=== PATIENT | male | born 1945 | race Caucasian/White ===

== ENCOUNTER → 2017-08-17 12:21 | Outpatient (CLI) | payer OTHER, SELFPAY ==
--- NOTE | 2017-08-17 | DI.US.S_ITS ---
PROCEDURE: US CAROTID DOPPLER BI INDICATIONS: VISION LOSS SUDDEN LEFT TECHNIQUE: Color and pulse Doppler interrogation was performed of both carotid systems, with image documentation and velocity measurements. COMPARISON: [facility], US, CAROTID ARTERY DOPPLER BILAT, 11/05/2015, 10:50. FINDINGS: Stenosis calculations are based on SRU (Society of Radi[employer] in Ultras[employer]) criteria. Right side: Brachial blood pressure: 110/67 mm Hg. Common carotid artery peak systolic velocity: 76 cm/sec. Internal carotid artery peak systolic velocity: 76 cm/sec. Internal carotid artery end diastolic velocity: 11 cm/sec. External carotid artery peak systolic velocity: 63 cm/sec. ICA/CCA peak systolic ratio: 1.0 . Crews scale imaging description: Calcified plaques at the bifurcation Percent internal carotid artery stenosis: Less than 50% and unchanged. Vertebral artery: Flow direction is antegrade. Left side: Brachial blood pressure: 89/60 mm Hg. Common carotid artery peak systolic velocity: 120 cm/sec. Internal carotid artery peak systolic velocity: 64 cm/sec. Internal carotid artery end diastolic velocity: 19 cm/sec. External carotid artery peak systolic velocity: 97 cm/sec. ICA/CCA peak systolic ratio: 0.54 . Crews scale imaging description: Density calcified plaques in carotid artery and carotid bifurcation Percent internal carotid artery stenosis: Less than 50% and unchanged. Vertebral artery: Flow direction is antegrade. IMPRESSION: Less than 50% internal carotid artery stenosis bilaterally, unchanged from the last exam. Dictated by: Yamila Sanchez M.D. on 08/17/2017 at 16:31 Approved by: Yamila Sanchez M.D. on 08/17/2017 at 16:34
--- NOTE | 2017-08-17 | DI.US.S_ITS ---
PROCEDURE: US ABD AORTA ANEURYSM SCREEN INDICATIONS: VISION LOSS SUDDEN LEFT TECHNIQUE: Real time scanning was performed of the aorta and iliac arteries, with image documentation. COMPARISON: None. FINDINGS: Aorta: Proximal aortic diameter measures 2.2 cm. Mid-aorta measures 2.1 cm. Distal aortic diameter is 1.9 cm. Iliac arteries: Right common iliac artery measures 1.2 cm. Left common iliac artery measures 1.2 cm. IMPRESSION: No aneurysm identified. Dictated by: Dez Kelsey M.D. on 08/17/2017 at 13:37 Approved by: Dez Kelsey M.D. on 08/17/2017 at 13:37
== END ==
PROVIDERS: PCP Family Medicine; Referring Provider Internal Medicine Cardiovascular Disease; Visit Provider Psychiatry & Neurology Neurology
DX: H54.7 Unspecified visual loss (principal)
CPT/HCPCS: 76706; 93880

== ENCOUNTER → 2017-09-16 14:48 | Outpatient (CLI) | payer OTHER, SELFPAY ==
--- NOTE | 2017-09-16 | DI.MRI.S_ITS ---
PROCEDURE: MR HEAD/BRAIN WO CON INDICATIONS: Unspecified visual disturbance TECHNIQUE: Non-contrast axial T1 spin echo, axial T2 fast spin echo, sagittal and axial FLAIR, coronal T2 fast spin echo, axial gradient echo, axial diffusion and ADC through the brain. COMPARISON: [facility], US, US CAROTID DOPPLER BI, 08/17/2017, 12:34. [facility], CT, HEAD WITHOUT CONTRAST, 05/10/2017, 11:30. FINDINGS: Image quality: Excellent. CSF spaces: Ventricles appear symmetric in size and shape. Basal cisterns are patent. No extra-axial fluid collections. Brain: No intracranial bleeds or mass effects. There is cerebral volume loss for age. There are periventricular and deep white matter chronic small vessel ischemic changes. Brainstem appears normal. Diffusion-weighted images show no acute ischemic insults. No chronic ischemic insults. Normal intravascular flow voids are present. Skull and face: Calvarial bone marrow is normal in signal. Orbits are normal. Sinuses: Sinuses and mastoids are clear. IMPRESSION: Unremarkable imaging examination for age. Note is made of age-appropriate brain parenchymal volume loss and chronic small vessel ischemic changes. Dictated by: Micah Stubbs M.D. on 09/16/2017 at 14:52 Approved by: Micah Stubbs M.D. on 09/16/2017 at 14:54
== END ==
PROVIDERS: PCP Family Medicine; Visit Provider Psychiatry & Neurology Neurology
DX: H53.9 Unspecified visual disturbance (principal)
CPT/HCPCS: 70551

== ENCOUNTER → 2018-10-30 10:24 | Outpatient (CLI) | payer OTHER, SELFPAY ==
--- NOTE | 2018-10-30 | DI.MRI.S_ITS ---
PROCEDURE: MR SHOULDER LT WO CON INDICATIONS: BI SHOULDER PAIN TECHNIQUE: Noncontrast oblique coronal T2 fast spin echo with fat saturation, oblique sagittal T1 spin echo and T2 fast spin echo with fat saturation, axial T1 spin echo and T2 fast spin echo with fat saturation through the shoulder. COMPARISON: [facility], CR, XR SHOULDER 2+ VIEWS RIGHT, 09/23/2018, 13:45. [facility], MR, MR SHOULDER RT WO CON, 10/30/2018, 10:33. FINDINGS: Image quality: Susceptibility artifacts in humeral head are seen with multiple surgical screws noted consistent with prior rotator cuff tendon repair. Rotator cuff: There is full-thickness rupture of the distal supraspinatus and infraspinatus at their insertion on normal head with ovoid 7 cm medial retraction of torn tendon fibers to the level of glenohumeral joint. Tendinosis and low to moderate grade partial-thickness tear involving the superior to mid fibers of the distal subscapularis is seen. Sagittal images demonstrate moderate to severe supraspinatus and infraspinatus muscle atrophy. Mild subscapularis muscle atrophy is also seen. Bones and bursae: Post surgical changes are noted in the acromioclavicular joint and humeral head. No gross marrow edema. No acute fracture or dislocation. Superior migration of humeral head in relation to glenoid is seen. Capsule and soft tissues: In the absence of intra-articular contrast, the labrum and glenohumeral ligaments appear intact. The long head of the biceps tendon demonstrates tendinosis and low to moderate grade intrasubstance partial-thickness tear. The rotator interval appears normal, without fibrosis. The coracohumeral ligament is normal in thickness. IMPRESSION: 1. Post surgical changes from previous rotator cuff tendon repair. No gross acute fracture or dislocation. 2. Full-thickness rupture of distal supraspinatus and infraspinatus at the insertion of humeral head with medial retraction of torn tendon fibers to the level of glenoid. Tendinosis and low to moderate grade partial-thickness tear involving distal subscapularis. Moderate to severe supraspinatus and infraspinatus muscle atrophy. Mild to moderate subscapularis muscle atrophy. 3. Tendinosis and moderate grade intrasubstance partial-thickness tear involving proximal intra-articular portion of long head biceps tendon. 4. No evidence of focal labral tear. Dictated by: Raheem Tobin M.D. on 11/01/2018 at 10:14 Approved by: Raheem Tobin M.D. on 11/01/2018 at 10:24
--- NOTE | 2018-10-30 | DI.MRI.S_ITS ---
PROCEDURE: MR SHOULDER RT WO CON INDICATIONS: BI SHOULDER PAIN TECHNIQUE: Noncontrast oblique coronal T2 fast spin echo with fat saturation, oblique sagittal T1 spin echo and T2 fast spin echo with fat saturation, axial T1 spin echo and T2 fast spin echo with fat saturation through the shoulder. COMPARISON: [facility], MR, SHOULDER WITHOUT CONTRAST, 09/28/2012, 13:19. FINDINGS: Image quality: Excellent. Rotator cuff: There is full-thickness rupture of the supraspinatus and infraspinatus at their insertion on the humeral head with 5 cm medial retraction of torn tendon fibers to the level of glenohumeral joint. Tendinosis and moderate grade partial-thickness involving distal subscapularis tendon is seen. Sagittal images demonstrate severe supraspinatus and infraspinatus muscle atrophy. Bones and bursae: There is superior migration of humeral head in relation to the glenoid. Moderate acromioclavicular joint and glenohumeral joint osteoarthritis is seen. No fracture or dislocation. Moderate amount of joint fluid in subacromial subdeltoid bursal fluid is seen. The Capsule and soft tissues: In the absence of intra-articular contrast, the labrum and glenohumeral ligaments appear intact. There is tendinosis and moderate to high-grade partial-thickness tear involving proximal intra-articular portion of long head biceps tendon. The rotator interval appears normal, without fibrosis. The coracohumeral ligament is normal in thickness. IMPRESSION: 1. Full-thickness rupture of distal supraspinatus and infraspinatus at the insertion of humeral head with a 5 cm medial retraction of torn tendon fibers to the level of glenohumeral joint. Tendinosis and moderate grade partial-thickness tear involving superior to mid fibers of distal subscapularis. Severe supraspinatus and infraspinatus muscle atrophy and moderate subscapularis muscle atrophy. 2. Moderate acromioclavicular joint and glenohumeral joint osteoarthritis. No fracture or dislocation. 3. No gross focal right shoulder labral tear. 4. Tendinosis and moderate to high-grade partial-thickness tear involving proximal intra-articular portion of long head of biceps tendon. Dictated by: Raheem Tobin M.D. on 11/01/2018 at 9:52 Approved by: Raheem Tobin M.D. on 11/01/2018 at 10:14
== END ==
PROVIDERS: PCP Family Medicine; Visit Provider Orthopaedic Surgery Foot and Ankle Surgery
DX: M25.511 Pain in right shoulder (principal); M25.512 Pain in left shoulder; M75.122 Complete rotator cuff tear or rupture of left shoulder, not specified as traumatic; M75.121 Complete rotator cuff tear or rupture of right shoulder, not specified as traumatic; M19.011 Primary osteoarthritis, right shoulder
CPT/HCPCS: 73221

== ENCOUNTER → 2019-04-20 10:51 | Outpatient (CLI) | payer OTHER, SELFPAY ==
--- NOTE | 2019-04-20 | DI.CT.S_ITS ---
PROCEDURE: CT CHEST WO CON INDICATIONS: Emphysema, unspecified TECHNIQUE: Noncontrast 5 mm thick sections acquired from the pulmonary apices to the posterior costophrenic angles. 1 mm lung window, 5 mm thick coronal and sagittal and 7 mm axial MIP reformats were then acquired. For radiation dose reduction, the following was used: automated exposure control, adjustment of mA and/or kV according to patient size. COMPARISON: [facility], CT, THORAX WITHOUT CONTRAST, 04/08/2016, 10:45. [facility], CT, CT ANGIO AORTA RUNOFF, 06/01/2018, 16:02. FINDINGS: Image quality: Excellent. Lungs and pleura: No acute consolidation. No pleural effusion or pneumothorax. There is redemonstration of bilateral upper and lower lobe subpleural reticular and ill-defined opacities, which have progressed diffusely since 04/08/16. There is central airway thickening. No definite bronchiectasis seen however potential early honeycombing appearance present in the lingula and right middle lobe, please see montage image. Mediastinum: Heart size is normal. Coronary artery calcifications are present. Scattered vascular calcifications seen in the aorta. No pericardial effusion. No mediastinal adenopathy by size criteria. Thoracic aorta and central pulmonary arteries are normal in size. Esophagus is normal in caliber. No hiatal hernia. Bones and chest wall: Bilateral gynecomastia incidentally noted. No suspicious bony lesions. No vertebral body compression fractures. Diffuse spondylosis and facet arthropathy. Multiple chronic appearing bilateral rib fractures with callus formation. No axillary or supraclavicular adenopathy by size criteria. Thyroid gland negative. Abdomen: Visualized upper abdominal solid organs and bowel loops appear normal in the absence of contrast. IMPRESSION: Interval progression in bilateral upper and lower lobe interstitial disease, with progressive early fibrotic appearance in the right middle lobe and lingula. Findings are worrisome for early/developing usual interstitial pneumonia, although other etiology such as chronic hypersensitivity pneumonitis or fibrotic NSIP in the differential, probably less likely Incidentally noted bilateral gynecomastia Coronary artery disease. Dictated by: Wisam Girard M.D. on 04/20/2019 at 11:17 Approved by: Wisam Girard M.D. on 04/20/2019 at 11:25
== END ==
PROVIDERS: PCP Family Medicine; Referring Provider Nurse Practitioner Family; Visit Provider Nurse Practitioner Family
DX: J98.4 Other disorders of lung (principal); J43.9 Emphysema, unspecified; I25.10 Atherosclerotic heart disease of native coronary artery without angina pectoris; N62 Hypertrophy of breast
CPT/HCPCS: 71250

== ENCOUNTER 2019-07-02 10:19 | Emergency (ER) | payer OTHER, SELFPAY ==
[2019-07-02 10:28] VITALS: BP 115/64; PULSE 96; RESP 20; TEMP 36.2; O2SAT 98; BMI 31.5
--- NOTE | 2019-07-02 10:50 | PC.NURSE ---
Pt has a pressure injury on bottom of right foot. Pt was not aware that it was there. It has an odor.
--- NOTE | 2019-07-02 11:10 | ED.LOWEXIN ---
HPI - Extremity Injury (Lower) General Chief Complaint: Extremity Injury, Lower Stated Complaint: poss broken lt hip Time Seen by Provider: 07/02/19 11:10 Source: patient and family Mode of arrival: Wheelchair Related Data Home Medications Medication Instructions Recorded Confirmed losartan 25 mg PO QDAY #0 08/28/11 metoprolol tartrate 25 mg PO BID #0 08/28/11 metformin [Fortamet] 500 mg PO BID #0 05/14/12 venlafaxine [Effexor XR] 150 mg PO QDAY #0 02/04/16 Allergies Allergy/AdvReac Type Severity Reaction Status Date / Time atorvastatin Allergy Intermediate Verified 07/02/19 10:27 diclofenac Allergy Unknown Verified 07/02/19 10:27 Sulfa (Sulfonamide Allergy Unknown Verified 07/02/19 10:27 Antibiotics) [SULFA (SULFONAMIDE ANTIBIOTICS)] bupropion AdvReac Unknown LOWERS Verified 07/02/19 10:27 SEIZURE THRESHOLD ALL STATINS Allergy Unknown Uncoded 07/02/19 10:27 Patient History Social History Smoking Status: Current every day smoker Smoking Status: Current every day smoker Alcohol type: hard liquor Substance Use Type: does not use Exam Initial Vital Signs Initial Vital Signs: Vital Signs Temperature 97.2 F L 07/02/19 10:28 Pulse Rate 96 H 07/02/19 10:28 Respiratory Rate 20 07/02/19 10:28 Blood Pressure 115/64 07/02/19 10:28 Pulse Oximetry 98 07/02/19 10:28 Course Orders Ordered: ED Orders 07/02/19 11:09 UA Complete [Urinalysis and Microscopic] Stat Vital Signs Vital signs: Vital Signs - 8 hr 07/02/19 10:28 Temperature 97.2 F L Pulse Rate 96 H Respiratory Rate 20 Blood Pressure 115/64 Pulse Oximetry 98 Discharge Plan Departure Prescriptions: No Action losartan 25 MG tablet 25 mg PO QDAY Qty: 0 RF: 0 metoprolol tartrate 25 MG tablet 25 mg PO BID Qty: 0 RF: 0 metformin [Fortamet] 500 MG tablet extended release 24hr 500 mg PO BID Qty: 0 RF: 0 venlafaxine [Effexor XR] 150 MG capsule,extended release 24hr 150 mg PO QDAY Qty: 0 RF: 0
[2019-07-02 11:13] LABS: Bacteria Urine None Seen
[2019-07-02 11:19] LABS: Appearance Urine UA CLEAR; Bilirubin Urine UA NEGATIVE (NEGATIVE); Color Urine UA YELLOW; Glucose Urine UA 1+ g/dL (Negative); Ketones Urine UA NEGATIVE (NEGATIVE); Leukocyte Esterase Urine UA NEGATIVE (NEGATIVE); Nitrite Urine UA NEGATIVE (Negative); Occult Blood Urine UA TRACE-LYSED (Negative); Protein Urine UA NEGATIVE (Negative); Urobilinogen Urine UA 0.2 E.U./dL (0.2); pH Urine UA 6.5 (4.5-8.0)
[2019-07-02 11:26] LABS: Culture Indicated Urine Cult Not Indicated; RBC Urine 0-1/HPF (0-5/HPF); Squamous Epithelial Cell Urine 0-1 /HPF (0-5/HPF); WBC Urine 0-1/HPF (0-5/HPF)
--- NOTE | 2019-07-02 11:46 | DI.CT.S_ITS ---
PROCEDURE: CT CERVICAL SPINE WO CON INDICATIONS: s/p fall on L face 2 days ago TECHNIQUE: Noncontrast 3 mm thick sections acquired from the skull base to the T4 level. Sagittal and coronal reformats were then constructed. For radiation dose reduction, the following was used: automated exposure control, adjustment of mA and/or kV according to patient size. COMPARISON: [facility], CT, CT HEAD/BRAIN WO CON, 07/02/2019, 11:54. FINDINGS: Image quality: Diagnostic. Bones: The craniocervical and atlantoaxial joints are well-maintained. The odontoid is intact. The vertebral body heights and prevertebral soft tissues are within normal limits throughout the cervical spine without evidence to suggest acute compression fracture. No other fractures are evident within the cervical spine. The bone mineralization is within normal limits. Moderate to severe multilevel degenerative changes of the cervical spine are primarily evident involving the facet joints. Soft tissues: No prevertebral soft tissue swelling. The imaged lung apices are clear. Imaged portions of the mediastinum are unremarkable. Mild scarring/fibrotic changes are evident within the imaged portions of the lung apices. Aortic and carotid artery atherosclerosis is present, but not adequately characterized. Otherwise, the remainder of the imaged soft tissues of the neck are within normal limits. IMPRESSION: 1. No acute fractures of the cervical spine. 2. Moderate to severe degenerative changes of the cervical spine. Dictated by: Gavin Sanderson M.D. on 07/02/2019 at 11:24 Approved by: Gavin Sanderson M.D. on 07/02/2019 at 11:26
--- NOTE | 2019-07-02 11:46 | DI.CT.S_ITS ---
PROCEDURE: CT HEAD/BRAIN WO CON INDICATIONS: s/p tripped and fall, takes 1GM ASA daily, L orbit pain, bru TECHNIQUE: Noncontrast 4.5 mm thick angled axial sections acquired from the foramen magnum to the vertex, with coronal and sagittal reformats. For radiation dose reduction, the following was used: automated exposure control, adjustment of mA and/or kV according to patient size. COMPARISON: [facility], CT, HEAD WITHOUT CONTRAST, 05/10/2017, 11:30. FINDINGS: Image quality: Diagnostic. CSF spaces: Basal cisterns are patent. No extra-axial fluid collections. Ventricles are prominent with corresponding parenchymal volume loss. Brain: No midline shift. No intracranial masses or hemorrhage. Crews-white matter interface is normal. Areas of low-attenuation are seen within the periventricular white matter of the supratentorial brain. Skull and face: Calvarium and visualized facial bones are intact, without suspicious lesions. Sinuses: Mucosal thickening is noted involving the left maxillary sinus and ethmoid air cells. Otherwise, the imaged paranasal sinuses and mastoid air cells are clear. IMPRESSION: 1. No acute intracranial. 2. Mild chronic small vessel ischemic changes and parenchymal volume loss. 3. Mild paranasal sinus disease. Dictated by: Gavin Sanderson M.D. on 07/02/2019 at 11:15 Approved by: Gavin Sanderson M.D. on 07/02/2019 at 11:24
--- NOTE | 2019-07-02 11:46 | DI.RAD.S_ITS ---
PROCEDURE: XR HIP W PEL IF DONE LT 2V INDICATIONS: left hip pain, difficulty bearing weight, s/p fall TECHNIQUE: 2 views of the hip were acquired. COMPARISON: None. FINDINGS: Bones: No displaced fracture or dislocation is identified involving the left hip. There moderate degenerative changes of both hips. There also are degenerative changes of the lumbosacral spine that are not well characterized. No suspicious osseous lesions are identified. The bone mineralization appears to be within normal limits. Soft tissues: No suspicious soft tissue calcifications or masses. Scattered vascular calcifications are present. IMPRESSION: No displaced left hip fractures. Dictated by: Gavin Sanderson M.D. on 07/02/2019 at 11:28 Approved by: Gavin Sanderson M.D. on 07/02/2019 at 11:29
[2019-07-02 11:59] LABS: Add Manual Diff / Slide Review NO; Basophils Absolute Auto 0 /uL (0-100); Basophils Percent Auto 0.5 % (0-2); Eosinophils Absolute Auto 100 /uL (0-450); Eosinophils Percent Auto 0.9 % (2-4); Hematocrit 38.5 % (41-53); Hemoglobin 13.2 g/dL (13.5-17.5); Lymphocytes Absolute Auto 1600 /uL (1100-4500); Lymphocytes Percent Auto 21.3 % (25-40); Mean Corpuscular HGB Conc 34.3 % (30-36); Mean Corpuscular Hemoglobin 34.6 PG (26-34); Mean Corpuscular Volume 100.7 fL (80-100); Monocytes Absolute Auto 1000 /uL (0-900); Monocytes Percent Auto 13.2 % (3-14); Neutrophils Absolute Auto 4800 /uL (1500-7000); Neutrophils Percent Auto 64.1 % (50-75); Platelet Count 201 X10^3/uL (150-400); Red Blood Cell Count 3.82 X10^6/uL (4.5-5.9); Red Cell Distribution Width 14.6 % (11.6-14.8); White Blood Cell Count 7.5 X10^3/uL (4.5-11.0)
[2019-07-02 12:04] LABS: Alanine Aminotransferase 16 IU/L (<50); Albumin 4.4 g/dL (3.5-5.0); Albumin Globulin Ratio 1.3 (1.0-2.8); Alkaline Phosphatase 69 U/L (38-126); Aspartate Aminotransferase 31 IU/L (17-59); BUN Creatinine Ratio 18.6 (6-22); Bilirubin Total 0.8 mg/dL (0.2-1.3); Blood Urea Nitrogen 18 mg/dL (9-20); Calcium 9.8 mg/dL (8.4-10.2); Carbon Dioxide 27 mmol/L (22-32); Chloride 95 mmol/L (98-107); Estimated Glomerular Filt Rate > 60.0 mL/min (>60); Globulin 3.4 g/dL (1.7-4.1); Glucose 345 mg/dL (80-110); HEMOLYSIS 24 (0-50); Potassium 4.5 mmol/L (3.4-5.1); Sodium 135 mmol/L (137-145); Total Protein 7.8 g/dL (6.3-8.2)
[2019-07-02] MEDS: ALBUTEROL 2.5 MG/3 ML NEB (ADULT) INH (12:28)
[2019-07-02 12:30] VITALS: BP 137/66; PULSE 84; RESP 16; O2SAT 92
[2019-07-02 12:36] VITALS: O2SAT 98
--- NOTE | 2019-07-02 13:23 | DI.RAD.S_ITS ---
PROCEDURE: XR FOOT RT MIN 3V INDICATIONS: R 1st metatarsal ulcerated foot infection, r/o gas or osteom TECHNIQUE: 3 views of the foot were acquired. COMPARISON: None. FINDINGS: Bones: No fractures or dislocations. Mild to moderate degenerative changes of the midfoot and forefoot are most pronounced involving the 1st and 5th metatarsophalangeal joints. Deformities involving the necks of the 2nd and 3rd metatarsals probably is related to previous healed injury. No osseous erosions or suspicious osseous lesions are appreciated. Soft tissues: Prominent soft tissue swelling about the dorsal aspect of the foot is identified. There appears to be a small skin ulceration along the plantar aspect of the 1st metatarsophalangeal joint. No unexpected radiopaque foreign bodies are evident. IMPRESSION: 1. No osseous erosions are appreciated to suggest osteomyelitis. If there is high clinical concern for osteomyelitis, please consider contrast enhanced MRI of the forefoot for further evaluation. 2. Prominent soft tissue swelling of the foot. Dictated by: Gavin Sanderson M.D. on 07/02/2019 at 12:48 Approved by: Gavin Sanderson M.D. on 07/02/2019 at 12:50
[2019-07-02] MEDS: ACETAMINOPHEN 325 MG TABLET 650 MG PO (13:44)
[2019-07-02] MEDS: DOXYCYCLINE HYCLATE 100 MG TABLET PO (13:44)
[2019-07-02] MEDS: SODIUM CHLORIDE 0.9% 500 ML 1000 ML IV (13:45)
[2019-07-02 14:12] VITALS: BP 164/74; PULSE 81; RESP 18; TEMP 36.5; O2SAT 95
[2019-07-02 14:28] VITALS: PULSE 82
[2019-07-02 14:58] VITALS: TEMP 36.5
--- NOTE | 2019-07-25 12:36 | ED_ITS ---
HPI - Extremity Injury (Lower) <KARIE Rahman - Last Filed: 07/27/19 00:04> General Chief Complaint: Extremity Injury, Lower Stated Complaint: poss broken lt hip Time Seen by Provider: 07/02/19 11:14 Source: patient and family Mode of arrival: Wheelchair Limitations: no limitations History of Present Illness HPI Narrative: This is a 74 year male, smoker, who presents to ED with his friend with status post of mechanical fall after his left slipper bent under his foot while trying to avoid stepping on his cat that was near by. Patient reports he hit left hip on the edge of bed and landed on left side faced on carpeted floor Th night at 10:00 p.m. (T-2 days). Patient denies chest pain, short of breath, dizziness prior to fall. Reports there is no pain during rest but increases with bearing weight and rates as 10/10. Patient takes Tylenol 1000 mg in the morning for back and joint pain. Patient denies taking other anticoagulants. Patient denies losing consciousness at that time. Patient has history of hypertension, diabetes, neuropathy, DVT in right femoral vein. Bypass surgery has been postponed it at [facility] due to Covid 19. Patient also reports history of vertigo but denies spinning sensation before the fall. Patient is to use a walker for ambulatory assistance and he lives in [facility]. Related Data Home Medications Medication Instructions Recorded Confirmed losartan 25 mg PO QDAY #0 08/28/11 metoprolol tartrate 25 mg PO BID #0 08/28/11 metformin [Fortamet] 500 mg PO BID #0 05/14/12 venlafaxine [Effexor XR] 150 mg PO QDAY #0 02/04/16 Allergies Allergy/AdvReac Type Severity Reaction Status Date / Time atorvastatin Allergy Intermediate Verified 08/05/19 09:39 diclofenac Allergy Unknown Verified 08/05/19 09:39 Sulfa (Sulfonamide Allergy Unknown Verified 08/05/19 09:39 Antibiotics) [SULFA (SULFONAMIDE ANTIBIOTICS)] bupropion AdvReac Unknown LOWERS Verified 08/05/19 09:39 SEIZURE THRESHOLD ALL STATINS Allergy Unknown Uncoded 08/05/19 09:39 Review of Systems <KARIE Rahman - Last Filed: 07/27/19 00:04> Review of Systems Narrative: General: Denies fever, chills, fatigue, malaise, sweats. HEENT: Denies sinus pain, ear pain, sore throat, difficulty swallowing, dizziness. Respiratory: Denies dyspnea, cough, wheezing, hemoptysis, sputum. Cardiovascular: Denies chest pain, palpitations, orthopnea, edema. Gastrointestinal: Denies nausea, vomiting, abdominal pain, diarrhea, constipation, melena. : Denies dysuria, frequency, incontinence, hematuria, urinary retention. Musculoskeletal: see HPI Skin: Denies rash, skin lesions. Neurologic: Denies weakness, headache, numbness, change in speech, confusion, seizures, incoordination. Psychiatric: No concerning psychosocial issues. 12-point review of systems is negative except for those stated above. Patient History <KARIE Rahman - Last Filed: 07/27/19 00:04> Medical History Diabetes (Acute) Hypertension (Acute) Neuropathy (Acute) Right femoral vein DVT (Acute) Social History Smoking Status: Current every day smoker Smoking Status: Current every day smoker Alcohol type: hard liquor Substance Use Type: does not use Exam <KARIE Rahman - Last Filed: 07/27/19 00:04> Narrative Exam Narrative: GEN: Alert, oriented x 3, well appearing and nourished, and in no acute distress. Head: Normal cephalic, atraumatic. No scalp or temporal tenderness, palpable mass or rash. EYES: Pupils are equal, round, and reactive to light and accommodation. Extraocular muscles are intact bilaterally. Left periorbital ecchymosis which is tender to palpate. There is no subconjunctival hemorrhage, exudate and sclera non-icteric. ENT: Bilateral auditory canals and tympanic membranes clear. No drainage from bilateral ear or nasally. Hearing grossly intact. Nose without bleeding, purulent discharge or deviation. Facial sinuses nontender to palpate. Mucous membrane moist, no mucosal lesion. Throat without erythema, tonsillar hypertrophy or exudate. Uvula in midline, airway patent. Neck: Trachea in midline. No JVD, non-tender without lymphadenopathy. No masses or thyroid megaly. Supple, non-tender and no meningeal signs. CARDIAC: Normal regular rate and rhythm with murmurs. No gallops, or rubs. No chest wall tenderness. No peripheral edema, cyanosis or pallor. Capillary refill is less than 2 seconds. RESPIRATORY: Lungs are mild expiratory wheeze to auscultate bilaterally. No cough, rales, or rhonchi. No stridor, respiratory distress, increase work of breathing, or accessary muscle used. ABD: Abdomen soft, nontender and non-distended. No guarding or rebound tenderness to palpate. Bowel sounds are normal in all 4 quadrants. There is no palpable masses or organomegaly. SKIN: Warm, dry, normal color for patient. No erythema, lesions or rash over visible areas. BACK: Nontender without deformity or crepitance. No flank tenderness. NEUROLOGICAL: Alert and oriented to place, time and person. Sensation and motor function intact bilaterally. No facial droops, dysphasia. PSYCHIATRIC: Good judgement and reason, without hallucinations, abnormal affect or abnormal behaviors during the examination. Patient is not suicidal. Initial Vital Signs Initial Vital Signs: Vital Signs Temperature 97.2 F L 07/02/19 10:28 Pulse Rate 96 H 07/02/19 10:28 Respiratory Rate 07/02/19 10:28 Blood Pressure 115/64 07/02/19 10:28 Pulse Oximetry 98 07/02/19 10:28 Extrem Right lower extremity: lower leg Details: non-pitting edema and foot Details: abnormal to inspection, edema and other (pressure ulcer on plantar aspect with drainage and odor. The patient was unaware of this.) Left lower extremity: hip/thigh Details: tenderness Location: of the hip and abnormal ROM Details: pain with active ROM and pain with passive ROM, knee Detai ls: normal to inspection; no tenderness, lower leg Details: no tenderness, ankle Details: no tenderness and foot Details: edema and motor-sensory exam; no tenderness <Amelia Griggs DO - Last Filed: 11/27/19 07:31> Initial Vital Signs Initial Vital Signs: Vital Signs Temperature 97.2 F L 07/02/19 10:28 Pulse Rate 96 H 07/02/19 10:28 Respiratory Rate 07/02/19 10:28 Blood Pressure 115/64 07/02/19 10:28 Pulse Oximetry 98 07/02/19 10:28 Scores <Gamal Madsen [facility] - Last Filed: 07/27/19 00:04> GCS Momence coma scale eye opening: Spontaneous Momence coma scale verbal response: Orientated Momence coma scale motor response: Obey commands Mine coma scale total score: 15 Nexus Score for C-Spine Focal Neurologic deficit present: No Midline spinal tenderness present: No Altered level of conciousness present: No Intoxication present: No Distracting Injury Present: Yes Nexus Criteria for C-spine: 1 Course <Gamal Madsen [facility] - Last Filed: 07/27/19 00:04> Orders Ordered: Discontinued Medications Acetaminophen (Tylenol) 650 mg PO NOW ONE Stop: 07/02/19 13:19 Last Admin: 07/02/19 13:44 Dose: 650 mg Documented by: KAI Albuterol (Ventolin) 2.5 mg INH NOW ONE Stop: 07/02/19 11:51 Last Admin: 07/02/19 12:28 Dose: 2.5 mg Documented by: KAI Doxycycline Hyclate (Vibramycin) 100 mg PO NOW ONE Stop: 07/02/19 13:24 Last Admin: 07/02/19 13:44 Dose: 100 mg Documented by: KAI Sodium Chloride (Normal Saline 0.9%) 500 mls @ 1,000 mls/hr IV BOLUS ONE Stop: 07/02/19 13:47 Last Infusion: 07/02/19 14:35 Dose: 0 mls/hr Documented by: Admin: 07/02/19 13:45 Dose: 1,000 mls/hr Documented by: KAI <Amelia Griggs DO - Last Filed: 11/27/19 07:31> Orders Ordered: Discontinued Medications Acetaminophen (Tylenol) 650 mg PO NOW ONE Stop: 07/02/19 13:19 Last Admin: 07/02/19 13:44 Dose: 650 mg Documented by: KAI Albuterol (Ventolin) 2.5 mg INH NOW ONE Stop: 07/02/19 11:51 Last Admin: 07/02/19 12:28 Dose: 2.5 mg Documented by: KAI Doxycycline Hyclate (Vibramycin) 100 mg PO NOW ONE Stop: 07/02/19 13:24 Last Admin: 07/02/19 13:44 Dose: 100 mg Documented by: KAI Sodium Chloride (Normal Saline 0.9%) 500 mls @ 1,000 mls/hr IV BOLUS ONE Stop: 07/02/19 13:47 Last Infusion: 07/02/19 14:35 Dose: 0 mls/hr Documented by: Admin: 07/02/19 13:45 Dose: 1,000 mls/hr Documented by: KAI MDM - Extremity Injury (Lower) <Gamal Suresh-KARIE Jose - Last Filed: 07/27/19 00:04> Differential Diagnosis Differential diagnosis: Likely other (Cranial hemorrhage, hip contusion, hip fracture, diabetic foot ulcer, hyper/hypo glycemia) Medical Records Attestation: I reviewed the patient's medical records. Lab Data Attestation: I reviewed the patient's lab results. Result diagrams: 07/02/19 10:38 07/02/19 10:38 Labs: Lab Results 07/02/19 07/02/19 07/02/19 Range/Units 10:38 10:38 11:04 WBC 7.5 (4.5-11.0) X10^3/uL RBC 3.82 L (4.5-5.9) X10^6/uL Hgb 13.2 L (13.5-17.5) g/dL Hct 38.5 L (41-53) % MCV 100.7 H (80-100) fL MCH 34.6 H (26-34) PG MCHC 34.3 (30-36) % RDW 14.6 (11.6-14.8) % Plt Count 201 (150-400) X10^3/uL Neut % (Auto) 64.1 (50-75) % Lymph % (Auto) 21.3 L (25-40) % Beckham % (Auto) 13.2 (3-14) % Eos % (Auto) 0.9 L (2-4) % Baso % (Auto) 0.5 (0-2) % Neut # (Auto) 4800 (7714-8608) /uL Lymph # (Auto) 1600 (1023-1916) /uL Beckham # (Auto) 1000 H (0-900) /uL Eos # (Auto) 100 (0-450) /uL Baso # (Auto) 0 (0-100) /uL Sodium 135 L (137-145) mmol/L Potassium 4.5 (3.4-5.1) mmol/L Chloride 95 L (98-107) mmol/L Carbon Dioxide 27 (22-32) mmol/L BUN 18 (9-20) mg/dL Creatinine 0.97 (0.66-1.25) mg/dL Estimated GFR > 60.0 (>60) mL/min BUN/Creatinine Ratio 18.6 (6-22) Glucose 345 H (80-110) mg/dL Calcium 9.8 (8.4-10.2) mg/dL Total Bilirubin 0.8 (0.2-1.3) mg/dL AST 31 (17-59) IU/L ALT 16 (<50) IU/L Alkaline Phosphatase 69 (38-126) U/L Total Protein 7.8 (6.3-8.2) g/dL Albumin 4.4 (3.5-5.0) g/dL Globulin 3.4 (1.7-4.1) g/dL Albumin/Globulin Ratio 1.3 (1.0-2.8) Urine Color Yellow Urine Appearance Clear Urine pH 6.5 (4.5-8.0) Ur Specific [place] 1.010 (1.000-1.035) Urine Protein Negative (Negative) Urine Glucose (UA) 1+ H (Negative) g/dL Urine Ketones Negative (NEGATIVE) Urine Occult Blood Trace-lysed (Negative) Urine Nitrate Negative (Negative) Urine Bilirubin Negative (NEGATIVE) Urine Urobilinogen 0.2 (0.2) E.U./dL Ur Leukocyte Esterase Negative (NEGATIVE) Urine RBC 0-1/hpf (0-5/HPF) Urine WBC 0-1/hpf (0-5/HPF) Ur Squamous Epith Cells 0-1 /hpf (0-5/HPF) Urine Bacteria None seen (None) Ur Culture Indicated? Cult not indicated Urine Dip Bedside Urine Glucose 500 mg/dl Bedside Urine Bilirubin - Negative Bedside Urine Ketone - Negative Urine Specific [place] 1.015 Bedside Urine Occult Blood +/- Bedside Urine pH 6.0 Bedside Urine Protein - Negative Bedside Urine Urobilinogen - Negative Bedside Urine Nitrite - Negative Bedside Urine Leukocytes - Negative Esterase Imaging Data CT scan - head: Radiologist's Impression: [address] [address] [address] Scan Report Signed Patient: Chava Leyva LMR#: [id number] : 6Acct:[id number] Age/Sex: 74 / MDate of Service: 07/02/19 Loc: ED Accession Number: [id number] Procedure: CT head/brain wo con Ordering Provider: Gamal Madsen PROCEDURE: CT HEAD/BRAIN WO CON INDICATIONS: s/p tripped and fall, takes 1GM ASA daily, L orbit pain, bru TECHNIQUE: Noncontrast 4.5 mm thick angled axial sections acquired from the foramen magnum to the vertex, with coronal and sagittal reformats. For radiation dose reduction, the following was used: automated exposure control, adjustment of mA and/or kV according to patient size. COMPARISON: [facility], CT, HEAD WITHOUT CONTRAST, 05/10/2017, 11:30. FINDINGS: Image quality: Diagnostic. CSF spaces: Basal cisterns are patent. No extra-axial fluid collections. Ventricles are prominent with corresponding parenchymal volume loss. Brain: No midline shift. No intracranial masses or hemorrhage. Crews-white matter interface is normal. Areas of low-attenuation are seen within the periventricular white matter of the supratentorial brain. Skull and face: Calvarium and visualized facial bones are intact, without suspicious lesions. Sinuses: Mucosal thickening is noted involving the left maxillary sinus and ethmoid air cells. Otherwise, the imaged paranasal sinuses and mastoid air cells are clear. IMPRESSION: 1. No acute intracranial. 2. Mild chronic small vessel ischemic changes and parenchymal volume loss. 3. Mild paranasal sinus disease. Dictated by: Gavin Sanderson M.D. on 07/02/2019 at 11:15 Approved by: Gavin Sanderson M.D. on 07/02/2019 at 11:24 CT- cervial : Radiologist's Impression: [place] [address] CT Scan Report Signed Patient: Chava Leyva LMR#: [id number] : 6Acct:[id number] Age/Sex: 74 / MDate of Service: 07/02/19 Loc: ED Accession Number: [id number] Procedure: CT cervical spine wo con Ordering Provider: Gamal Mdasen PROCEDURE: CT CERVICAL SPINE WO CON INDICATIONS: s/p fall on L face 2 days ago TECHNIQUE: Noncontrast 3 mm thick sections acquired from the skull base to the T4 level. Sagittal and coronal reformats were then constructed. For radiation dose reduction, the following was used: automated exposure control, adjustment of mA and/or kV according to patient size. COMPARISON: [facility], CT, CT HEAD/BRAIN WO CON, 07/02/2019, 11:54. FINDINGS: Image quality: Diagnostic. Bones: The craniocervical and atlantoaxial joints are well-maintained. The odontoid is intact. The vertebral body heights and prevertebral soft tissues are within normal limits throughout the cervical spine without evidence to suggest acute compression fracture. No other fractures are evident within the cervical spine. The bone mineralization is within normal limits. Moderate to severe multilevel degenerative changes of the cervical spine are primarily evident involving the facet joints. Soft tissues: No prevertebral soft tissue swelling. The imaged lung apices are clear. Imaged portions of the mediastinum are unremarkable. Mild scarring/fibrotic changes are evident within the imaged portions of the lung apices. Aortic and carotid artery atherosclerosis is present, but not adequately characterized. Otherwise, the remainder of the imaged soft tissues of the neck are within normal limits. IMPRESSION: 1. No acute fractures of the cervical spine. 2. Moderate to severe degenerative changes of the cervical spine. Dictated by: Gavin Sanderson M.D. on 07/02/2019 at 11:24 Approved by: Gavin Sanderson M.D. on 07/02/2019 at 11:26 XR-Hip LT: Radiologist's Impression: [address] [address] XRay Report Signed Patient: Chava Leyva LMR#: [id number] : 6Acct:[id number] Age/Sex: 74 / MDate of Service: 07/02/19 Loc: ED Accession Number: [id number] Procedure: XR hip w pel if done LT 2V Ordering Provider: Gamal Madsen PROCEDURE: XR HIP W PEL IF DONE LT 2V INDICATIONS: left hip pain, difficulty bearing weight, s/p fall TECHNIQUE: 2 views of the hip were acquired. COMPARISON: None. FINDINGS: Bones: No displaced fracture or dislocation is identified involving the left hip. There moderate degenerative changes of both hips. There also are degenerative changes of the lumbosacral spine that are not well characterized. No suspicious osseous l esions are identified. The bone mineralization appears to be within normal limits. Soft tissues: No suspicious soft tissue calcifications or masses. Scattered vascular calcifications are present. IMPRESSION: No displaced left hip fractures. Dictated by: Gavin Sanderson M.D. on 07/02/2019 at 11:28 Approved by: Gavin Sanderson M.D. on 07/02/2019 at 11:29 XR-Foot LT: Radiologist's Impression: [place] [address] XRay Report Signed Patient: Chava Leyva LMR#: [id number] : 6Acct:[id number] Age/Sex: 74 / MDate of Service: 07/02/19 Loc: ED Accession Number: [id number] Procedure: XR foot RT min 3V Ordering Provider: Gamal Madsen PROCEDURE: XR FOOT RT MIN 3V INDICATIONS: R 1st metatarsal ulcerated foot infection, r/o gas or osteom TECHNIQUE: 3 views of the foot were acquired. COMPARISON: None. FINDINGS: Bones: No fractures or dislocations. Mild to moderate degenerative changes of the midfoot and forefoot are most pronounced involving the 1st and 5th metatarsophalangeal joints. Deformities involving the necks of the 2nd and 3rd metatarsals probably is related to previous healed injury. No osseous erosions or suspicious osseous lesions are appreciated. Soft tissues: Prominent soft tissue swelling about the dorsal aspect of the foot is identified. There appears to be a small skin ulceration along the plantar aspect of the 1st metatarsophalangeal joint. No unexpected radiopaque foreign bodies are evident. IMPRESSION: 1. No osseous erosions are appreciated to suggest osteomyelitis. If there is high clinical concern for osteomyelitis, please consider contrast enhanced MRI of the forefoot for further evaluation. 2. Prominent soft tissue swelling of the foot. Dictated by: Gavin Sanderson M.D. on 07/02/2019 at 12:48 Approved by: Gavin Sanderson M.D. on 07/02/2019 at 12:50 ECG Data Attestation: I personally reviewed and interpreted this ECG as follows: Prior ECG tracings: available for review Interpretation: Sinus rhythm rate at 77. Right bundle branch block. Normal [place]. [place] interval 170, QRS duration 140 for, QT/QTC 390/443. No significant changes from previous EKG tracing. MDM Narrative Medical decision making narrative: There is no focal neuro deficit per exam. Since patient's advanced age and he has been taking aspirin 1000 mg at a time for pain management, with left periorbit ecchymosis and pain, CT of head and C- spine were ordered. There is no acute intracranial findings but mild chronic small-vessel ischemic changes with parent Bryson volume loss with incidental mild para nasal sinus disease noted per head CT. No indication for facial bone fractures. C-spine indicates no acute fractures but moderate to severe degenerative changes in cervical spine. Left hip x-ray does not show acute findings or dislocation. There is moderate degenerative changes of both hips. CBC with mild anemia with H&H of 13.2/38.5 which is above slight about patient's baseline. There is no leukocytosis for increase in neutrophil counts. Normal platelet counts of 201. Serum glucose was 345 with sodium level of 135. Corrected sodium level is 141 which is normal. normal kidney and liver function test. No indications of UTI with negative urine leukocyte and nitrates. Was obtained from right plantar surface, likely diabetic foot ulcer. Osseous erosion suggesting osteomyelitis with prominent soft tissue swelling of the foot. Patient is afebrile during ED stay. Normal heart rate and hemodynamically stable. Patient provided with nebulizer treatment for mild expiratory wheezing. Patient treated with Tylenol 650 mg for discomfort. Provided 500 mL normal saline bolus for hyperglycemia. Patient treated with 1st dose doxycycline for diabetic foot ulcer. Wound care was done and applied on affected side and advised to change dressing in 2 days after re-evaluation. Patient advised offloading to help with healing. Patient advised to follow-up with primary care physician when he returns to home in [facility] in a couple of days for hyperglycemia and diabetic foot ulcer. Advised to use [id number] Tylenol for pain management as needed. Patient was able to ambulate with the assistance. Patient advised to use a walker consistently to prevent further fall and for comfort in left hip. Patient verbalized understanding and agreement with treatment plan. Patient discharged to home with doxycycline b.i.d. for 7 day course. <Amelia Griggs, - Last Filed: 11/27/19 07:31> Lab Data Labs: Lab Results 07/02/19 07/02/19 07/02/19 Range/Units 10:38 10:38 11:04 WBC 7.5 (4.5-11.0) X10^3/uL RBC 3.82 L (4.5-5.9) X10^6/uL Hgb 13.2 L (13.5-17.5) g/dL Hct 38.5 L (41-53) % MCV 100.7 H (80-100) fL MCH 34.6 H (26-34) PG MCHC 34.3 (30-36) % RDW 14.6 (11.6-14.8) % Plt Count 201 (150-400) X10^3/uL Neut % (Auto) 64.1 (50-75) % Lymph % (Auto) 21.3 L (25-40) % Beckham % (Auto) 13.2 (3-14) % Eos % (Auto) 0.9 L (2-4) % Baso % (Auto) 0.5 (0-2) % Neut # (Auto) 4800 (8734-6952) /uL Lymph # (Auto) 1600 (6995-1723) /uL [place] # (Auto) 1000 H (0-900) /uL Eos # (Auto) 100 (0-450) /uL Baso # (Auto) 0 (0-100) /uL Sodium 135 L (137-145) mmol/L Potassium 4.5 (3.4-5.1) mmol/L Chloride 95 L (98-107) mmol/L Carbon Dioxide 27 (22-32) mmol/L BUN 18 (9-20) mg/dL Creatinine 0.97 (0.66-1.25) mg/dL Estimated GFR > 60.0 (>60) mL/min BUN/Creatinine Ratio 18.6 (6-22) Glucose 345 H (80-110) mg/dL Calcium 9.8 (8.4-10.2) mg/dL Total Bilirubin 0.8 (0.2-1.3) mg/dL AST 31 (17-59) IU/L ALT 16 (<50) IU/L Alkaline Phosphatase 69 (38-126) U/L Total Protein 7.8 (6.3-8.2) g/dL Albumin 4.4 (3.5-5.0) g/dL Globulin 3.4 (1.7-4.1) g/dL Albumin/Globulin Ratio 1.3 (1.0-2.8) Urine Color Yellow Urine Appearance Clear Urine pH 6.5 (4.5-8.0) Ur Specific [place] 1.010 (1.000-1.035) Urine Protein Negative (Negative) Urine Glucose (UA) 1+ H (Negative) g/dL Urine Ketones Negative (NEGATIVE) Urine Occult Blood Trace-lysed (Negative) Urine Nitrate Negative (Negative) Urine Bilirubin Negative (NEGATIVE) Urine Urobilinogen 0.2 (0.2) E.U./dL Ur Leukocyte Esterase Negative (NEGATIVE) Urine RBC 0-1/hpf (0-5/HPF) Urine WBC 0-1/hpf (0-5/HPF) Ur Squamous Epith Cells 0-1 /hpf (0-5/HPF) Urine Bacteria None seen (None) Ur Culture Indicated? Cult not indicated Urine Dip Bedside Urine Glucose 500 mg/dl Bedside Urine Bilirubin - Negative Bedside Urine Ketone - Negative Urine Specific [place] 1.015 Bedside Urine Occult Blood +/- Bedside Urine pH 6.0 Bedside Urine Protein - Negative Bedside Urine Urobilinogen - Negative Bedside Urine Nitrite - Negative Bedside Urine Leukocytes - Negative Esterase Discharge Plan Departure Patient Disposition: Home Clinical Impression: Hip pain, left, Elevated blood sugar Foot ulcer, right Qualifiers: Non-pressure ulcer stage: unspecified non-pressure ulcer stage Qualified Code(s): L97.519 - Non-pressure chronic ulcer of other part of right foot with unspecified severity Fall Qualifiers: Encounter type: initial encounter Qualified Code(s): W19.XXXA - Unspecified fall, initial encounter Discharge Date/Time: 07/02/19 14:46 Instructions: DI for Diabetic Foot Ulcer, How to Prevent Falls, DI for Hyperglycemia -- Adult, DI for Hip Pain Activity Restrictions/Additional Instructions: You have been diagnosed with [left hip pain from a fall, Right 1st metatarsal ulcer, elevated glucose. CT of head and C-spine was negative for acute findings. Foot x-ray does not show fracture, dislocation, obvious foreign body, bony lesion but soft tissue swelling around the ulcer. Hip x-ray does not show acute findings such as fracture. There is no significantly Increased white count which is 7.5. Serum glucose Was 345. You received Tylenol and IV hydration with 500 ml of normal saline. You need wound recheck and dressing change in about a 2 days. Please limit putting pressure on affected foot. You should use a walker to avoid falling and help with balance and for pain in her left hip. What to do: *Take your medications as directed. Please take [id number] Tylenol and or Motrin as needed for discomfort. Tylenol 650 mg to 1000 mg 3 times a day as needed. Ibuprofen 400 mg up to 3 times a day with food. If you use aspirin for your pain management please avoid taking ibuprofen together. Please take doxycycline twice a day for next 7 days. Your given 1st dose while in ED. *Follow up with your primary care provider in 2-3 days, call for an appointment. Let them know you were seen in the ED and that we asked you to be seen in follow up. *Return to ED if you have any new, worsening, or concerning symptoms, such as [chest pain, breathing difficulty, unable to tolerate fluids, fever, worsening pain, increasing drainage from right foot or any acute concerns. If her pain persists on left hip greater than 7-10 days, you may need additional imaging test.]. Prescriptions: No Action losartan 25 MG tablet 25 mg PO QDAY Qty: 0 RF: 0 metoprolol tartrate 25 MG tablet 25 mg PO BID Qty: 0 RF: 0 metformin [Fortamet] 500 MG tablet extended release 24hr 500 mg PO BID Qty: 0 RF: 0 venlafaxine [Effexor XR] 150 MG capsule,extended release 24hr 150 mg PO QDAY Qty: 0 RF: 0 Referrals: Chava Ley [Primary Care Provider] -
== END 2019-07-02 14:46 | disposition home or self-care (01) ==
PROVIDERS: Emergency Provider Nurse Practitioner Family; PCP Family Medicine
DX: M25.552 Pain in left hip (principal); L97.519 Non-pressure chronic ulcer of other part of right foot with unspecified severity; E11.65 Type 2 diabetes mellitus with hyperglycemia; W19.XXXA Unspecified fall, initial encounter
CPT/HCPCS: 36415; 70450; 72125; 73502; 73630; 80053; 81001; 81003; 85025; 87070; 87205; 93005; 94640; 96360; 99285; J7613

== ENCOUNTER 2019-08-05 08:55 | Emergency (ER) | payer OTHER, SELFPAY ==
[2019-08-05 09:31] VITALS: BP 131/58; PULSE 93; RESP 20; TEMP 36.8; O2SAT 94; BMI 31.5
[2019-08-05 10:21] VITALS: BP 143/69; PULSE 89; RESP 18; O2SAT 98
[2019-08-05 10:37] LABS: Prothrombin Time 11.9 SECONDS (10.1-12.7)
[2019-08-05 10:39] LABS: PTT Partial Thromboplastin Tim 28 SECONDS (26.4-36.2)
[2019-08-05 10:40] LABS: Lactate (Lactic Acid) 1.6 mmol/L (0.7-2.1)
--- NOTE | 2019-08-05 10:41 | ED.WOUNDLAC ---
HPI - Wound/Laceration General Chief Complaint: Wound/Laceration Stated Complaint: infection from a recent surgery. Time Seen by Provider: 08/05/19 10:40 Source: patient Mode of arrival: Family Vehicle Limitations: no limitations History of Present Illness HPI narrative: CC: Right leg infection HPI: The patient is a 74-year-old male who presents to the emergency department with a recent history of having had a femoral-popliteal bypass graft performed by the vascular surgeons at [facility] in every 3 weeks ago. The patient states that he saw his family physician yesterday for the redness in his leg and was given a shot of an antibiotic and sent to the emergency department. He states that you need to be given IV antibiotics. His 1st visit was yesterday to his doctor's office. He has had mild to minimal pain and discomfort in the leg. He has had no significant fever chills or sweats. He has noticed that he has developed irritation in his groin at the surgical site and redness and tenderness over the medial incision over his calf. The distal right foot and leg has become swollen and mildly tender and erythematous. He has had no sweats and no significant pain or discomfort. He denies any chest pain cough or shortness of breath. He has had no headache numbness or tingling or loss of sensation. And he has had no sore throat or trouble swallowing. He denies any chest pain cough shortness of breath racing of his heart dizziness or passing out. And he has had no abdominal pain nausea vomiting or urinary symptoms. He states that he does smoke cigarettes drinks alcohol but does not use marijuana or any other drugs. Related Data Home Medications Medication Instructions Recorded Confirmed losartan 25 mg PO QDAY #0 08/28/11 metoprolol tartrate 25 mg PO BID #0 08/28/11 metformin [Fortamet] 500 mg PO BID #0 05/14/12 venlafaxine [Effexor XR] 150 mg PO QDAY #0 02/04/16 Allergies Allergy/AdvReac Type Severity Reaction Status Date / Time atorvastatin Allergy Intermediate Verified 08/05/19 09:39 diclofenac Allergy Unknown Verified 08/05/19 09:39 Sulfa (Sulfonamide Allergy Unknown Verified 08/05/19 09:39 Antibiotics) [SULFA (SULFONAMIDE ANTIBIOTICS)] bupropion AdvReac Unknown LOWERS Verified 06/19/20 09:39 SEIZURE THRESHOLD ALL STATINS Allergy Unknown Uncoded 08/05/19 09:39 Review of Systems Review of Systems Narrative: Review of systems were all negative except for those mentioned in the history of present illness. Patient History Medical History Diabetes (Acute) Hypertension (Acute) Neuropathy (Acute) Right femoral vein DVT (Acute) Social History Smoking Status: Current every day smoker Smoking Status: Current every day smoker Alcohol type: hard liquor Substance Use Type: does not use Exam Narrative Exam Narrative: PHYSICAL EXAM: CONSTITUTIONAL: Awake, Alert, Oriented, Coherent, Cooperative in NAD. Does not appear toxic or ill. HEAD: AT/NC EENT: PERRL, FROM of eyes, no discharge, NOSE:No epistaxis or nasal drainage MOUTH:Oral mucosa is moist and pink, posterior pharynx is without erythema or exudate. NECK: Supple, no obvious JVD, Trachea is midline without stridor, no palpable LN. SPINE: Palpation off the cervical, Thoracic, Lumbar or Sacral spine reveals no gross deformity or tenderness. No CVA tenderness. THORAX: No deformity, retractions, chest wall tenderness. LUNGS: Clear, symmetrical breath sounds without respiratory distress. HEART: The patient has an irregular heart with a grade 1-2/6 systolic ejection murmur along the left sternal border. ABDOMEN: Soft, non-tender, without guarding, rebound, rigidity or palpable mass. EXTREMITIES: He has a swollen right leg. The distal leg and dorsal foot is mildly erythematous warm and swollen. The patient has a surgical incision over the medial right leg with the distal 3rd erythematous tender without palpable fluctuance. The patient has erythema over his medial thigh. He has a surgical incision in the groin with intertrigo in. There is a small area of arm the surgical incision that is a appears to be a little bit macerated without pustular drainage. There is no gross erythema but there is intertrigo own rash suggestive of a yeast infection and moisture in the groin. Femoral pulse was positive there was no palpable mass or excessive tenderness SKIN: No other rash, bruising, petechiae or purpura. NEURO: Awake, alert, oriented, conversive, cranial nerves II-XII are symmetrical , moves all 4 extremities Initial Vital Signs Initial Vital Signs: Vital Signs Temperature 98.2 F 08/05/19 09:31 Pulse Rate 93 H 08/05/19 09:31 Respiratory Rate 20 08/05/19 09:31 Blood Pressure 131/58 L 08/05/19 09:31 Pulse Oximetry 94 08/05/19 09:31 Course Course Course Narrative: 1228: Call into hospitalist to admit. 1400 I discussed the patient with Dr. Muhammad who wanted me to discuss the patient with the patient's of vascular surgeon. She discussed the patient with Dr. Gomez who thought that the patient should be transferred back to [facility] to be re-evaluated by his vascular surgeons. The patient has what appears to be scattered postoperative cellulitis of his right leg status post fem-pop bypass. 1425 I discussed the patient with the vascular PA Ruben Izaguirre who accepted the patient being transferred and back to [facility]. The patient will be admitted to [facility] the vascular surgeon on-call. Arrangements have been made through the [facility] transfer center. The patient appears to have a postoperative cellulitis without an elevated white blood count or fever. Orders Ordered: ED Orders 08/05/19 14:40 Urine Microscopic Stat Discontinued Medications Piperacillin/Tazobactam/Dextrose (Zosyn) 4.5 gm in 100 mls @ 200 mls/hr IV NOW ONE Stop: 08/05/19 11:35 Last Infusion: 08/05/19 12:07 Dose: 0 mls/hr Documented by: Admin: 08/05/19 11:43 Dose: 200 mls/hr Documented by: ISABEL Vancomycin HCl (Vancomycin) 1,000 mg in 200 mls @ 200 mls/hr IV Q24H DONA Last Infusion: 08/05/19 14:24 Dose: 0 mls/hr Documented by: Admin: 08/05/19 12:30 Dose: 200 mls/hr Documented by: ISABEL Sodium Chloride (Normal Saline 0.9%) 1,000 mls @ 150 mls/hr IV CONT DONA Last Infusion: 08/05/19 16:36 Dose: 0 mls/hr Documented by: Admin: 08/05/19 15:22 Dose: 150 mls/hr Documented by: ISABEL Vital Signs Vital signs: Vital Signs - 8 hr 08/05/19 14:14 08/05/19 16:22 Pulse Rate 81 78 Respiratory Rate 22 17 Blood Pressure [Left Arm] 127/59 L 142/62 H Pulse Oximetry 98 98 MDM - Wound/Laceration Medical Records Attestation: I reviewed the patient's medical records. Lab Data Attestation: I reviewed the patient's lab results. Result diagrams: 08/05/19 10:15 08/05/19 09:44 Labs: Lab Results 08/05/19 08/05/19 08/05/19 Range/Units 09:44 10:15 10:15 WBC 7.5 (4.5-11.0) X10^3/uL RBC 2.92 L (4.5-5.9) X10^6/uL Hgb 10.1 L (13.5-17.5) g/dL Hct 28.2 L (41-53) % MCV 96.6 (80-100) fL MCH 34.5 H (26-34) PG MCHC 35.8 (30-36) % RDW 15.2 H (11.6-14.8) % Plt Count 223 (150-400) X10^3/uL Neut % (Auto) 61.5 (50-75) % Lymph % (Auto) 23.1 L (25-40) % [place] % (Auto) 11.7 (3-14) % Eos % (Auto) 2.7 (2-4) % Baso % (Auto) 1.0 (0-2) % Neut # (Auto) 4600 (8220-5380) /uL Lymph # (Auto) 1700 (2537-2938) /uL [place] # (Auto) 900 (0-900) /uL Eos # (Auto) 200 (0-450) /uL Baso # (Auto) 100 (0-100) /uL ESR (0-15) MM/HR PT 11.9 (10.1-12.7) SECONDS INR 1.0 (0.9-1.3) APTT 28 (26.4-36.2) SECONDS Sodium 130 L (137-145) mmol/L Potassium 5.0 (3.4-5.1) mmol/L Chloride 93 L (98-107) mmol/L Carbon Dioxide 27 (22-32) mmol/L BUN 22 H (9-20) mg/dL Creatinine 1.24 (0.66-1.25) mg/dL Estimated GFR 57.0 L (>60) mL/min BUN/Creatinine Ratio 17.7 (6-22) Glucose 396 H (80-110) mg/dL Lactate (0.7-2.1) mmol/L Calcium 9.7 (8.4-10.2) mg/dL Total Bilirubin 0.6 (0.2-1.3) mg/dL AST 22 (17-59) IU/L ALT 18 (<50) IU/L Alkaline Phosphatase 75 (38-126) U/L Lactate Dehydrogenase (313-618) U/L Total Creatine Kinase (55-170) U/L C-Reactive Protein (<1.0) mg/dL Total Protein 7.3 (6.3-8.2) g/dL Albumin 3.9 (3.5-5.0) g/dL Globulin 3.4 (1.7-4.1) g/dL Albumin/Globulin Ratio 1.1 (1.0-2.8) Lipase 99 (23-300) U/L Procalcitonin (<0.5) ng/mL Urine RBC (0-5/HPF) Urine WBC (0-5/HPF) Ur Squamous Epith Cells (0-5/HPF) Urine Bacteria (None) Ur Culture Indicated? 08/05/19 08/05/19 08/05/19 Range/Units 10:15 10:15 10:15 WBC (4.5-11.0) X10^3/uL RBC (4.5-5.9) X10^6/uL Hgb (13.5-17.5) g/dL Hct (41-53) % MCV (80-100) fL MCH (26-34) PG MCHC (30-36) % RDW (11.6-14.8) % Plt Count (150-400) X10^3/uL Neut % (Auto) (50-75) % Lymph % (Auto) (25-40) % [place] % (Auto) (3-14) % Eos % (Auto) (2-4) % Baso % (Auto) (0-2) % Neut # (Auto) (2327-7875) /uL Lymph # (Auto) (5450-4187) /uL [place] # (Auto) (0-900) /uL Eos # (Auto) (0-450) /uL Baso # (Auto) (0-100) /uL ESR 108 H (0-15) MM/HR PT (10.1-12.7) SECONDS INR (0.9-1.3) APTT (26.4-36.2) SECONDS Sodium (137-145) mmol/L Potassium (3.4-5.1) mmol/L Chloride (98-107) mmol/L Carbon Dioxide (22-32) mmol/L BUN (9-20) mg/dL Creatinine (0.66-1.25) mg/dL Estimated GFR (>60) mL/min BUN/Creatinine Ratio (6-22) Glucose (80-110) mg/dL Lactate 1.6 (0.7-2.1) mmol/L Calcium (8.4-10.2) mg/dL Total Bilirubin (0.2-1.3) mg/dL AST (17-59) IU/L ALT (<50) IU/L Alkaline Phosphatase (38-126) U/L Lactate Dehydrogenase (313-618) U/L Total Creatine Kinase (55-170) U/L C-Reactive Protein (<1.0) mg/dL Total Protein (6.3-8.2) g/dL Albumin (3.5-5.0) g/dL Globulin (1.7-4.1) g/dL Albumin/Globulin Ratio (1.0-2.8) Lipase (23-300) U/L Procalcitonin < 0.05 (<0.5) ng/mL Urine RBC (0-5/HPF) Urine WBC (0-5/HPF) Ur Squamous Epith Cells (0-5/HPF) Urine Bacteria (None) Ur Culture Indicated? 08/05/19 08/05/19 08/05/19 Range/Units 10:15 10:15 14:40 WBC (4.5-11.0) X10^3/uL RBC (4.5-5.9) X10^6/uL Hgb (13.5-17.5) g/dL Hct (41-53) % MCV (80-100) fL MCH (26-34) PG MCHC (30-36) % RDW (11.6-14.8) % Plt Count (150-400) X10^3/uL Neut % (Auto) (50-75) % Lymph % (Auto) (25-40) % [place] % (Auto) (3-14) % Eos % (Auto) (2-4) % Baso % (Auto) (0-2) % Neut # (Auto) (6381-2228) /uL Lymph # (Auto) (7408-8045) /uL [place] # (Auto) (0-900) /uL Eos # (Auto) (0-450) /uL Baso # (Auto) (0-100) /uL ESR (0-15) MM/HR PT (10.1-12.7) SECONDS INR (0.9-1.3) APTT (26.4-36.2) SECONDS Sodium (137-145) mmol/L Potassium (3.4-5.1) mmol/L Chloride (98-107) mmol/L Carbon Dioxide (22-32) mmol/L BUN (9-20) mg/dL Creatinine (0.66-1.25) mg/dL Estimated GFR (>60) mL/min BUN/Creatinine Ratio (6-22) Glucose (80-110) mg/dL Lactate (0.7-2.1) mmol/L Calcium (8.4-10.2) mg/dL Total Bilirubin (0.2-1.3) mg/dL AST (17-59) IU/L ALT (<50) IU/L Alkaline Phosphatase (38-126) U/L Lactate Dehydrogenase 359 (313-618) U/L Total Creatine Kinase 24 L (55-170) U/L C-Reactive Protein 3.1 H (<1.0) mg/dL Total Protein (6.3-8.2) g/dL Albumin (3.5-5.0) g/dL Globulin (1.7-4.1) g/dL Albumin/Globulin Ratio (1.0-2.8) Lipase (23-300) U/L Procalcitonin (<0.5) ng/mL Urine RBC None seen (0-5/HPF) Urine WBC None seen (0-5/HPF) Ur Squamous Epith Cells 0-1 /hpf (0-5/HPF) Urine Bacteria None seen (None) Ur Culture Indicated? Cult not indicated ECG Data Attestation: I personally reviewed and interpreted this ECG as follows: Interpretation: The patient's EKG reveals a normal sinus rhythm with a ventricular rate of 88 p.r. interval is normal as well as the QRS is widened. The patient has a right bundle branch block pattern. QTC is 467 milliseconds which is slightly prolonged normal axis. The patient has inverted T-waves in leads III V1 V2 V3. The patient has nonspecific ST segment changes in V4 V5 V6. There are no other acute diagnostic ST segment changes to suggest infarct or ischemia. Discharge Plan Departure Patient Disposition: [facility] Clinical Impression: Cellulitis Qualifiers: Site of cellulitis: extremity Site of cellulitis of extremity: lower extremity Laterality: right Qualified Code(s): L03.115 - Cellulitis of right lower limb Discharge Date/Time: 08/05/19 16:44 Prescriptions: No Action losartan 25 MG tablet 25 mg PO QDAY Qty: 0 RF: 0 metoprolol tartrate 25 MG tablet 25 mg PO BID Qty: 0 RF: 0 metformin [Fortamet] 500 MG tablet extended release 24hr 500 mg PO BID Qty: 0 RF: 0 venlafaxine [Effexor XR] 150 MG capsule,extended release 24hr 150 mg PO QDAY Qty: 0 RF: 0 Referrals: Chava Ley [Primary Care Provider] -
--- NOTE | 2019-08-05 11:02 | DI.US.S_ITS ---
PROCEDURE: US ARTERIAL DUPLEX LE RT INDICATIONS: s/p Fem pop bypass approximately 3 weeks ago, with infection check circulation TECHNIQUE: Color and pulse Doppler interrogation was performed of the right lower extremity arterial system, with image documentation. COMPARISON: [facility], CT, CT ANGIO AORTA RUNOFF, 06/01/2018, 16:02. FINDINGS: Common femoral artery: 208 cm/sec, with monophasic flow. Deep femoral artery: Not seen Proximal superficial femoral artery: 168 cm/sec, with monophasic flow. Mid superficial femoral artery: 140 cm/sec, with monophasic flow. Distal superficial femoral artery: 121 cm/sec, with monophasic flow. Popliteal artery: 37 cm/sec, with diminished monophasic flow. Posterior tibial artery: 80 cm/sec, with monophasic flow. Anterior tibial artery/dorsalis pedis: 53 cm/sec, with monophasic flow. Crews-scale imaging description: Scattered atherosclerotic calcific and soft plaquing, without a discrete focal area of high-grade stenosis identified. IMPRESSION: Reported prior femoral-popliteal bypass graft, with monophasic flow through the right lower extremity arterial vasculature. The monophasic flow seen in through the right lower extremity arterial vasculature may represent a chronic status for this patient given reference to prior CT angiography report from May of last year describing multiple areas of right iliac artery stenosis from calcific and soft plaquing. Reference to prior ultrasound study through this area postoperatively would be very valuable if available to determine if there has been a significant interval change manager the prior 3 weeks. Dictated by: Dez Kelsey M.D. on 08/05/2019 at 11:38 Approved by: Dez Kelsey M.D. on 08/05/2019 at 11:43
[2019-08-05 11:08] LABS: Add Manual Diff / Slide Review NO; Basophils Absolute Auto 100 /uL (0-100); Eosinophils Absolute Auto 200 /uL (0-450); Eosinophils Percent Auto 2.7 % (2-4); Hematocrit 28.2 % (41-53); Hemoglobin 10.1 g/dL (13.5-17.5); Lymphocytes Absolute Auto 1700 /uL (1100-4500); Lymphocytes Percent Auto 23.1 % (25-40); Mean Corpuscular HGB Conc 35.8 % (30-36); Mean Corpuscular Hemoglobin 34.5 PG (26-34); Mean Corpuscular Volume 96.6 fL (80-100); Monocytes Absolute Auto 900 /uL (0-900); Monocytes Percent Auto 11.7 % (3-14); Neutrophils Absolute Auto 4600 /uL (1500-7000); Neutrophils Percent Auto 61.5 % (50-75); Platelet Count 223 X10^3/uL (150-400); Red Blood Cell Count 2.92 X10^6/uL (4.5-5.9); Red Cell Distribution Width 15.2 % (11.6-14.8); White Blood Cell Count 7.5 X10^3/uL (4.5-11.0)
[2019-08-05 11:15] LABS: Alanine Aminotransferase 18 IU/L (<50); Albumin 3.9 g/dL (3.5-5.0); Albumin Globulin Ratio 1.1 (1.0-2.8); Alkaline Phosphatase 75 U/L (38-126); Aspartate Aminotransferase 22 IU/L (17-59); BUN Creatinine Ratio 17.7 (6-22); Bilirubin Total 0.6 mg/dL (0.2-1.3); Blood Urea Nitrogen 22 mg/dL (9-20); Calcium 9.7 mg/dL (8.4-10.2); Carbon Dioxide 27 mmol/L (22-32); Chloride 93 mmol/L (98-107); Globulin 3.4 g/dL (1.7-4.1); Glucose 396 mg/dL (80-110); HEMOLYSIS < 15 (0-50); Lipase 99 U/L (23-300); Sodium 130 mmol/L (137-145); Total Protein 7.3 g/dL (6.3-8.2)
[2019-08-05 11:17] LABS: C-Reactive Protein Quant 3.1 mg/dL (<1.0); Creatine Kinase 24 U/L (55-170); Lactate Dehydrogenase 359 U/L (313-618)
[2019-08-05 11:25] VITALS: BP 146/65; PULSE 87; RESP 17; O2SAT 97
[2019-08-05 11:34] LABS: Erythrocyte Sedimentation Rate 108 MM/HR (0-15)
[2019-08-05] MEDS: PIPERACILLIN-TAZO 4.5 GM/100 ML FROZ.PIGGY IV (11:43)
[2019-08-05] MEDS: VANCOMYCIN 1,000 MG/200 ML PIGGYBACK 200 MG IV (12:09)
[2019-08-05 13:03] VITALS: BP 143/61; PULSE 84; RESP 18; O2SAT 96
[2019-08-05 14:14] VITALS: BP 127/59; PULSE 81; RESP 22; O2SAT 98
[2019-08-05 14:55] LABS: Bacteria Urine None Seen; RBC Urine None Seen (0-5/HPF); WBC Urine None Seen (0-5/HPF)
[2019-08-05 15:13] LABS: Culture Indicated Urine Cult Not Indicated; Squamous Epithelial Cell Urine 0-1 /HPF (0-5/HPF)
[2019-08-05 15:19] LABS: Procalcitonin < 0.05 ng/mL (<0.5)
[2019-08-05] MEDS: SODIUM CHLORIDE 0.9% 1,000 ML 150 ML IV (15:22)
[2019-08-05 16:22] VITALS: BP 142/62; PULSE 78; RESP 17; O2SAT 98
== END 2019-08-05 16:44 | disposition short-term general hospital (02) ==
PROVIDERS: Emergency Provider Emergency Medicine; PCP Family Medicine
DX: L03.115 Cellulitis of right lower limb (principal)
CPT/HCPCS: 36415; 80053; 81003; 81015; 82550; 83605; 83615; 83690; 84145; 85025; 85610; 85651; 85730; 86140; 87040; 87070; 87205; 93005; 93926; 96361; 96365; 96366; 96367; 99284; J2543

== ENCOUNTER 2020-01-06 19:15 | Emergency (ER) | payer MEDICARE, SELFPAY ==
[2020-01-06] VITALS (10 sets, daily range): BP systolic 103–123; BP diastolic 57–58; PULSE 76–88; RESP 16; TEMP 36.9; O2SAT 96–99; BMI 30.4
--- NOTE | 2020-01-06 19:54 | ED.EXTPRO ---
HPI - Extremity Problem General Chief complaint: Extremity Problem,Nontraumatic Stated complaint: possible deep vein thrombosis Time Seen by Provider: 01/06/20 19:20 Source: patient Mode of arrival: Wheelchair Limitations: no limitations History of Present Illness HPI Narrative: 74-year-old male history of hypertension, diabetes and peripheral vascular disease presents with his in the chief complaint of pain, swelling and redness of his right calf. He states that it aches and throbs and seems to be worse when he ambulates. He denies systemic symptoms such as fever, chills nor nausea or vomiting. He did have a femoral bypass [facility] in June but has largely experienced improvement in overall symptoms since then. He has had no numbness, tingling or weakness. He denies any pallor or mottling of his leg MD Complaint: extremity pain and extremity swelling Onset (ago): day(s) Pain Consistency: constant Location: right and lower extremity Quality: aching Relieving factors: rest Exacerbating factors: weight bearing and walking Associated symptoms: denies other symptoms Related Data Home Medications Medication Instructions Recorded Confirmed losartan 25 mg PO QDAY #0 08/28/11 metoprolol tartrate 25 mg PO BID #0 08/28/11 metformin [Fortamet] 500 mg PO BID #0 05/14/12 venlafaxine [Effexor XR] 150 mg PO QDAY #0 02/04/16 Previous Rx's Medication Instructions Recorded cephalexin [Keflex] 500 mg PO QID 7 Days #28 cap 01/07/20 Allergies Allergy/AdvReac Type Severity Reaction Status Date / Time atorvastatin Allergy Intermediate Verified 08/05/19 09:39 diclofenac Allergy Unknown Verified 08/05/19 09:39 Sulfa (Sulfonamide Allergy Unknown Verified 08/05/19 09:39 Antibiotics) [SULFA (SULFONAMIDE ANTIBIOTICS)] bupropion AdvReac Unknown LOWERS Verified 08/05/19 09:39 SEIZURE THRESHOLD ALL STATINS Allergy Unknown Uncoded 08/05/19 09:39 Review of Systems Constitutional Constitutional: Denies chills, Denies fatigue, Denies fever(s), Denies frequent falls, Denies lethargy and Denies weakness Eyes Eyes: Denies change in vision, Denies eye discharge, Denies irritation and Denies loss of vision ENT Ears, Nose, Mouth, and Throat: Denies change in voice, Denies dizziness, Denies neck pain, Denies sore throat and Denies throat swelling Cardiovascular Cardiovascular: Denies chest pain, Denies irregular heart rhythm, Denies lightheadedness, Denies palpitations, Denies dyspnea, Denies dyspnea on exertion and Denies orthopnea Respiratory Respiratory: Denies cough, Denies dyspnea, Denies dyspnea on exertion and Denies wheezing Gastrointestinal Gastrointestinal: Denies abdominal pain, Denies change in bowel habits, Denies diarrhea, Denies nausea and Denies vomiting Musculoskeletal Musculoskeletal: Denies neck pain and Denies numbness Integumentary/Breasts Skin/Breast: Denies pruritus, Reports erythema, Denies rash, Reports skin pain, Reports skin swelling and Denies wounds Neurologic Neurologic: Denies behavioral changes, Denies confusion, Denies dizziness, Denies frequent falls, Denies loss of vision, Denies numbness and Denies weakness Psychiatric Psychiatric: Denies anxiety, Denies behavioral changes, Denies confusion, Denies depression, Denies homicidal ideation and Denies suicidal ideation Endocrine Endocrine: Denies fatigue, Denies flushing and Denies palpitations Hematologic/Lymphatic Hematologic/Lymphatic: Denies easy bruising Allergic/Immunologic Allergic/Immunologic: Denies urticaria, Denies throat swelling and Denies wheezing Patient History Medical History Diabetes Hypertension Neuropathy Right femoral vein DVT Social History Smoking Status: Current every day smoker Smoking Status: Current every day smoker Alcohol type: hard liquor Substance Use Type: does not use Exam Narrative Exam Narrative: GENERAL: [74] year old patient appears stated age. Well-nourished, well-developed patient, in mild distress. HEAD: Atraumatic. Normocephalic. EYES: Pupils equal round and reactive. Extraocular motions intact. No scleral icterus. No injection or drainage. ENT: Nose without bleeding, purulent drainage. Throat without erythema, tonsillar hypertrophy or exudate. Airway patent. NECK: Trachea midline. Non tender CARDIOVASCULAR: Regular rate and rhythm without murmurs, gallops, or rubs. RESPIRATORY: Clear to auscultation. Breath sounds equal bilaterally. No wheezes, rales, or rhonchi. GASTROINTESTINAL: Abdomen soft, non-tender, nondistended. EXTREMITIES: Right calf as swelling, some erythema, warmth and tenderness to palpation. No redness or pain of the foot. Sensation intact, cap refill intact, foot is warm BACK: Nontender without deformity or crepitance. No flank tenderness. NEURO: AOx3. SKIN: No rash or erythema of visible areas Initial Vital Signs Initial Vital Signs: Vital Signs Temperature 98.5 F 01/06/20 19:50 Pulse Rate 87 01/06/20 19:50 Respiratory Rate 16 01/06/20 19:50 Blood Pressure 103/58 L 01/06/20 19:50 Pulse Oximetry 98 01/06/20 19:50 Course Orders Ordered: Discontinued Medications Cefazolin Sodium (Cephalexin 250 Mg Prepack) 1 bottle MISC SEEINSTR ONE Stop: 01/07/20 00:13 Last Admin: 01/07/20 00:17 Dose: 250 mg Documented by: NEVA Consultations Consultation #1: I have discussed the case with on-call vascular surgery at [facility] and they will reach out to patient and see him in the clinic on thursday. They agree that this is unlikely to be a vascular event given the imaging and exam findings Vital Signs Vital signs: Vital Signs - 8 hr 01/06/20 22:30 01/06/20 23:00 01/06/20 23:18 Pulse Rate 81 80 80 Blood Pressure 114/57 L Pulse Oximetry 97 99 97 01/06/20 23:30 01/06/20 23:55 01/07/20 00:00 Pulse Rate 76 83 Blood Pressure 123/57 L 136/60 Pulse Oximetry 97 96 01/07/20 00:05 01/07/20 00:30 Pulse Rate 77 80 Blood Pressure 132/61 Pulse Oximetry 96 96 MDM - Extremity (Nontraumatic) Lab Data Result diagrams: 01/06/20 20:12 01/06/20 20:12 Labs: Lab Results 01/06/20 01/06/20 01/06/20 Range/Units 20:12 20:12 20:12 WBC 9.1 (4.5-11.0) X10^3/uL RBC 3.24 L (4.5-5.9) X10^6/uL Hgb 10.5 L (13.5-17.5) g/dL Hct 31.9 L (41-53) % MCV 98.4 (80-100) fL MCH 32.4 (26-34) PG MCHC 32.9 (30-36) % RDW 17.6 H (11.6-14.8) % Plt Count 183 (150-400) X10^3/uL Neut % (Auto) 64.5 (50-75) % Lymph % (Auto) 21.2 L (25-40) % Major % (Auto) 10.7 (3-14) % Eos % (Auto) 2.4 (2-4) % Baso % (Auto) 1.2 (0-2) % Neut # (Auto) 5900 (1249-9561) /uL Lymph # (Auto) 1900 (9830-9850) /uL Major # (Auto) 1000 H (0-900) /uL Eos # (Auto) 200 (0-450) /uL Baso # (Auto) 100 (0-100) /uL PT 11.3 (10.1-12.7) SECONDS INR 1.0 (0.9-1.3) D-Dimer 686 H (<230) ng/mL Sodium 135 L (137-145) mmol/L Potassium 4.2 (3.4-5.1) mmol/L Chloride 101 (98-107) mmol/L Carbon Dioxide 30 (22-32) mmol/L BUN 19 (9-20) mg/dL Creatinine 1.04 (0.66-1.25) mg/dL Estimated GFR > 60.0 (>60) mL/min BUN/Creatinine Ratio 18.3 (6-22) Glucose 361 H (80-110) mg/dL Calcium 8.9 (8.4-10.2) mg/dL Imaging Data US - DVT: Radiologist's Impression: No DVT Aortic Runoff: Radiologist's Impression: [address] [id number] Scan ReportSigned Patient: Chava Leyva LMR#: [id number]: 6Acct:[id number]/Sex: 74 / MDate of Service: 01/06/20Loc: EDAccession Number: [id number] Procedure: CT angio abd aorta runoff Ordering Provider: Eulogio Mirza D.O. PROCEDURE: CT ANGIO ABD AORTA RUNOFF INDICATIONS: pain, swelling, redness, fem bypass in June TECHNIQUE: After the administration of intravenous contrast, 2.5 mm sections acquired from T12 to the feet, with optional delayed image acquisition from the knees to the feet. 3-dimensional maximum intensity projection (MIP) coronal and sagittal reformats, and/or 3-dimensional volume rendering reformatting was then performed. For radiation dose reduction, the following was used: automated exposure control. COMPARISON: None. FINDINGS: Image quality: Excellent. Image quality: Excellent. Lung bases: There is fibrosis in the posterior lung bases. Heart size is normal. Solid organs: Liver: The liver has no mass or intrahepatic biliary ductal dilatation. The portal vein and hepatic veins are patent. Biliary: Status post cholecystectomy. Pancreas: The pancreas has no mass or ductal dilatation. There is no surrounding inflammation. Spleen: Normal size. There are no masses. Adrenals: No hypertrophy or nodules. Kidneys: No obstructive calculus or hydronephrosis. No solid mass. There is a 1.7 centimeters cyst of the inferior pole of the right kidney. Peritoneum and bowel: The distal esophagus and stomach are normal. The small bowel has a normal caliber and appearance. The terminal ileum is normal. The large bowel has a normal caliber and appearance. No free fluid or air. Nodes and vessels: No retroperitoneal or mesenteric adenopathy by size criteria. Aorta and inferior vena cava are normal in size. Miscellaneous: No abdominal wall mass or hernia. PELVIS: Genitourinary: The bladder has no wall thickening or mass. No bladder calcifications. Miscellaneous: No inguinal hernias or adenopathy. Bones: The left 10th and 11th ribs are fractured posteriorly. No vertebral body compression fractures. Abdominal aorta: The abdominal aorta has severe calcified atherosclerotic disease. The celiac trunk has atherosclerotic calcifications at the origin with mild stenosis. The SMA has atherosclerotic calcifications at the origin with severe stenosis. Both renal arteries have some atherosclerotic calcifications at the origins with severe stenosis on the right and mild stenosis on the left. There is irregular eccentric mural thrombus along the course of the abdominal aorta with 50 percent stenosis distally above the bifurcation. Both common iliac arteries, internal iliac arteries, and external iliac arteries have extensive calcified atherosclerotic disease with multifocal areas of mild stenosis. Right lower extremity: There is a right fem-pop bypass with a high-grade near occlusive stenosis at the anastomosis with the OUTDOOR LANDSCAPE ARCHITECT. A moderate stenosis is seen at the distal anastomosis with the popliteal artery. The popliteal artery has severe calcified atherosclerotic disease with multifocal areas of moderate stenosis. The infrapopliteal arteries are not well visualized. Left lower extremity: A severe calcified plaque at the OUTDOOR LANDSCAPE ARCHITECT bifurcation is nearly occlusive. There is flow into the PFA and SFA however. The SFA and popliteal arteries have severe calcified atherosclerotic plaque with multifocal areas of severe stenosis. The infrapopliteal arteries are not well visualized. IMPRESSION: 1. Severe atherosclerotic disease of the abdominal aorta with severe stenosis of the origin of the SMA and right renal artery. The aorta has a 50 percent stenosis distally due to mural thrombus and plaque. 2. Both common, internal, and external iliac arteries are heavily diseased with multifocal areas of at least mild stenosis. 3. High-grade near occlusive stenosis of the right fem-pop bypass graft at the origin and moderate stenosis at the distal anastomosis with the popliteal artery. 4. High-grade near occlusive stenosis of the left OUTDOOR LANDSCAPE ARCHITECT bifurcation. 5. Severe multifocal areas of severe stenosis involving the left SFA and popliteal artery. 6. The infrapopliteal arteries are not well visualized likely due to dilution of contrast. Dictated by: Dominguez Waters M.D. on 01/06/2020 at 21:54 Approved by: Dominguez Waters M.D. on 01/06/2020 at 22:34 MDM Narrative Medical decision making narrative: Multiple etiologies for patient's symptoms considered including: [DVT versus cellulitis versus arterial occlusion versus other] Patient's symptoms improved over duration of stay with above-stated therapies. Findings and discharge diagnosis discussed with patient/family followed by verbalization of understanding Return precautions discussed with patient/family whom verbalize understanding. Discharge Plan Departure Patient Disposition: Home Clinical Impression: Cellulitis of leg, right Acute leg pain Qualifiers: Laterality: right Qualified Code(s): M79.604 - Pain in right leg Instructions: DI for Cellulitis -- Adult Activity Restrictions/Additional Instructions: *You have been diagnosed with [right leg pain, no evidence of problem with your surgery, and no evidence of a DVT. After speaking with the vascular surgeons we elected to treat for a possible early skin infection and they will reach out to you on Thursday morning to set up a close follow-up appointment] *What to do: *Take medications as directed including the prescription for the antibiotic and also begin taking a full dose aspirin. *Follow up with your vascular surgeon at [facility], call for an appointment. Let them know you were seen in the Emergency Department and that we ask that you be seen in follow up *Return to ER if you should have any new, worsening or concerning symptoms, such as [increasing pain, fever greater than 101, chills, numbness, tingling, change in color of your foot or other concerning symptoms] Prescriptions: New cephalexin [Keflex] 500 mg capsule 500 mg PO QID 7 Days Qty: 28 RF: 0 No Action losartan 25 MG tablet 25 mg PO QDAY Qty: 0 RF: 0 metoprolol tartrate 25 MG tablet 25 mg PO BID Qty: 0 RF: 0 metformin [Fortamet] 500 MG tablet extended release 24hr 500 mg PO BID Qty: 0 RF: 0 venlafaxine [Effexor XR] 150 MG capsule,extended release 24hr 150 mg PO QDAY Qty: 0 RF: 0 Referrals: Chava Ley MD [Primary Care Provider] -
[2020-01-06 20:20] LABS: Add Manual Diff / Slide Review NO; Basophils Absolute Auto 100 /uL (0-100); Basophils Percent Auto 1.2 % (0-2); Eosinophils Absolute Auto 200 /uL (0-450); Eosinophils Percent Auto 2.4 % (2-4); Hematocrit 31.9 % (41-53); Hemoglobin 10.5 g/dL (13.5-17.5); Lymphocytes Absolute Auto 1900 /uL (1100-4500); Lymphocytes Percent Auto 21.2 % (25-40); Mean Corpuscular HGB Conc 32.9 % (30-36); Mean Corpuscular Hemoglobin 32.4 PG (26-34); Mean Corpuscular Volume 98.4 fL (80-100); Monocytes Absolute Auto 1000 /uL (0-900); Monocytes Percent Auto 10.7 % (3-14); Neutrophils Absolute Auto 5900 /uL (1500-7000); Neutrophils Percent Auto 64.5 % (50-75); Platelet Count 183 X10^3/uL (150-400); Red Blood Cell Count 3.24 X10^6/uL (4.5-5.9); Red Cell Distribution Width 17.6 % (11.6-14.8); White Blood Cell Count 9.1 X10^3/uL (4.5-11.0)
[2020-01-06 20:27] LABS: Prothrombin Time 11.3 SECONDS (10.1-12.7)
[2020-01-06 20:30] LABS: D Dimer 686 ng/mL (<230)
[2020-01-06 20:31] LABS: BUN Creatinine Ratio 18.3 (6-22); Blood Urea Nitrogen 19 mg/dL (9-20); Calcium 8.9 mg/dL (8.4-10.2); Carbon Dioxide 30 mmol/L (22-32); Chloride 101 mmol/L (98-107); Estimated Glomerular Filt Rate > 60.0 mL/min (>60); Glucose 361 mg/dL (80-110); HEMOLYSIS < 15 (0-50); Potassium 4.2 mmol/L (3.4-5.1); Sodium 135 mmol/L (137-145)
--- NOTE | 2020-01-06 20:37 | DI.US.S_ITS ---
PROCEDURE: US PERIPH VENOUS LOW EXTREM RT INDICATIONS: EDEMA, PAIN, REDNESS TECHNIQUE: Real-time imaging, as well as color and pulse Doppler interrogation, were performed of the lower extremity deep veins from the inguinal ligament to the popliteal fossa. COMPARISON: None. FINDINGS: The common femoral, femoral and popliteal veins are normally compressible, and free of intraluminal thrombus. Color and pulse Doppler demonstrate normal phasic intraluminal flow. There is normal augmentation response to distal compression maneuver. IMPRESSION: No DVT in the right lower extremity. Dictated by: Dominguez Waters M.D. on 01/06/2020 at 21:33 Approved by: Dominguez Waters M.D. on 01/06/2020 at 21:33
--- NOTE | 2020-01-06 21:09 | DI.CT.S_ITS ---
PROCEDURE: CT ANGIO ABD AORTA RUNOFF INDICATIONS: pain, swelling, redness, fem bypass in June TECHNIQUE: After the administration of intravenous contrast, 2.5 mm sections acquired from T12 to the feet, with optional delayed image acquisition from the knees to the feet. 3-dimensional maximum intensity projection (MIP) coronal and sagittal reformats, and/or 3-dimensional volume rendering reformatting was then performed. For radiation dose reduction, the following was used: automated exposure control. COMPARISON: None. FINDINGS: Image quality: Excellent. Image quality: Excellent. Lung bases: There is fibrosis in the posterior lung bases. Heart size is normal. Solid organs: Liver: The liver has no mass or intrahepatic biliary ductal dilatation. The portal vein and hepatic veins are patent. Biliary: Status post cholecystectomy. Pancreas: The pancreas has no mass or ductal dilatation. There is no surrounding inflammation. Spleen: Normal size. There are no masses. Adrenals: No hypertrophy or nodules. Kidneys: No obstructive calculus or hydronephrosis. No solid mass. There is a 1.7 centimeters cyst of the inferior pole of the right kidney. Peritoneum and bowel: The distal esophagus and stomach are normal. The small bowel has a normal caliber and appearance. The terminal ileum is normal. The large bowel has a normal caliber and appearance. No free fluid or air. Nodes and vessels: No retroperitoneal or mesenteric adenopathy by size criteria. Aorta and inferior vena cava are normal in size. Miscellaneous: No abdominal wall mass or hernia. PELVIS: Genitourinary: The bladder has no wall thickening or mass. No bladder calcifications. Miscellaneous: No inguinal hernias or adenopathy. Bones: The left 10th and 11th ribs are fractured posteriorly. No vertebral body compression fractures. Abdominal aorta: The abdominal aorta has severe calcified atherosclerotic disease. The celiac trunk has atherosclerotic calcifications at the origin with mild stenosis. The SMA has atherosclerotic calcifications at the origin with severe stenosis. Both renal arteries have some atherosclerotic calcifications at the origins with severe stenosis on the right and mild stenosis on the left. There is irregular eccentric mural thrombus along the course of the abdominal aorta with 50 percent stenosis distally above the bifurcation. Both common iliac arteries, internal iliac arteries, and external iliac arteries have extensive calcified atherosclerotic disease with multifocal areas of mild stenosis. Right lower extremity: There is a right fem-pop bypass with a high-grade near occlusive stenosis at the anastomosis with the OPERATING ROOM TECHNICIAN. A moderate stenosis is seen at the distal anastomosis with the popliteal artery. The popliteal artery has severe calcified atherosclerotic disease with multifocal areas of moderate stenosis. The infrapopliteal arteries are not well visualized. Left lower extremity: A severe calcified plaque at the OPERATING ROOM TECHNICIAN bifurcation is nearly occlusive. There is flow into the PFA and SFA however. The SFA and popliteal arteries have severe calcified atherosclerotic plaque with multifocal areas of severe stenosis. The infrapopliteal arteries are not well visualized. IMPRESSION: 1. Severe atherosclerotic disease of the abdominal aorta with severe stenosis of the origin of the SMA and right renal artery. The aorta has a 50 percent stenosis distally due to mural thrombus and plaque. 2. Both common, internal, and external iliac arteries are heavily diseased with multifocal areas of at least mild stenosis. 3. High-grade near occlusive stenosis of the right fem-pop bypass graft at the origin and moderate stenosis at the distal anastomosis with the popliteal artery. 4. High-grade near occlusive stenosis of the left OPERATING ROOM TECHNICIAN bifurcation. 5. Severe multifocal areas of severe stenosis involving the left SFA and popliteal artery. 6. The infrapopliteal arteries are not well visualized likely due to dilution of contrast. Dictated by: Dominguez Waters M.D. on 01/06/2020 at 21:54 Approved by: Dominguez Waters M.D. on 01/06/2020 at 22:34
[2020-01-07] VITALS: BP 136/60
[2020-01-07 00:05] VITALS: PULSE 77; O2SAT 96
[2020-01-07] MEDS: cephALEXin 250 MG PREPACK 1 BOTTLE MISC (00:17)
[2020-01-07 00:30] VITALS: BP 132/61; PULSE 80; O2SAT 96
== END 2020-01-07 00:44 | disposition home or self-care (01) ==
PROVIDERS: Emergency Provider Emergency Medicine; PCP Family Medicine
DX: L03.115 Cellulitis of right lower limb (principal); M79.604 Pain in right leg; E11.9 Type 2 diabetes mellitus without complications; I10 Essential (primary) hypertension
CPT/HCPCS: 36415; 75635; 80048; 85025; 85379; 85610; 93971; 99284; Q9967

== ENCOUNTER → 2020-07-10 11:15 | Outpatient (CLI) | payer MEDICARE, SELFPAY ==
[2020-07-10 20:49] LABS: COVID19 - ORCAS (NP or Nasal) Negative (Negative)
== END ==
PROVIDERS: PCP Family Medicine; Visit Provider Family Medicine
DX: Z01.812 Encounter for preprocedural laboratory examination (principal); Z20.822 Contact with and (suspected) exposure to COVID-19
CPT/HCPCS: U0003

== ENCOUNTER → 2021-10-09 17:12 | Outpatient (CLI) | payer MEDICARE, SELFPAY | PROVIDERS: PCP Family Medicine; Visit Provider Physician Assistant Medical | DX: N23 Unspecified renal colic (principal) | CPT/HCPCS: 87086 ==

== ENCOUNTER → 2021-10-10 09:45 | Outpatient (CLI) | payer MEDICARE, SELFPAY ==
[2021-10-10 20:00] LABS: Add Manual Diff / Slide Review NO; Basophils Absolute Auto 0 /uL (0-100); Basophils Percent Auto 0.5 % (0-2); Eosinophils Absolute Auto 200 /uL (0-450); Eosinophils Percent Auto 2.2 % (2-4); Hematocrit 33.9 % (41-53); Hemoglobin 11.4 g/dL (13.5-17.5); Lymphocytes Absolute Auto 1300 /uL (1100-4500); Lymphocytes Percent Auto 13.5 % (25-40); Mean Corpuscular HGB Conc 33.6 % (30-36); Mean Corpuscular Hemoglobin 31.2 PG (26-34); Mean Corpuscular Volume 92.9 fL (80-100); Monocytes Absolute Auto 1200 /uL (0-900); Monocytes Percent Auto 12.9 % (3-14); Neutrophils Absolute Auto 6800 /uL (1500-7000); Neutrophils Percent Auto 70.9 % (50-75); Platelet Count 247 X10^3/uL (150-400); Red Blood Cell Count 3.65 X10^6/uL (4.5-5.9); Red Cell Distribution Width 16.9 % (11.6-14.8); White Blood Cell Count 9.6 X10^3/uL (4.5-11.0)
[2021-10-10 20:03] LABS: Alanine Aminotransferase 15 IU/L (<50); Albumin 3.8 g/dL (3.5-5.0); Albumin Globulin Ratio 1.1 (1.0-2.8); Alkaline Phosphatase 81 U/L (38-126); Aspartate Aminotransferase 29 IU/L (17-59); BUN Creatinine Ratio 22.3 (6-22); Bilirubin Total 0.4 mg/dL (0.2-1.3); Blood Urea Nitrogen 29 mg/dL (9-20); Carbon Dioxide 32 mmol/L (22-32); Chloride 98 mmol/L (98-107); Cholesterol 139 mg/dL (140-199); Estimated Glomerular Filt Rate 57 mL/min (>60); Globulin 3.6 g/dL (1.7-4.1); Glucose 206 mg/dL (80-110); HDL Cholesterol 24 mg/dL (40-60); HEMOLYSIS < 15 (0-50); LDL Cholesterol Calculated 66 mg/dL (<100); Potassium 4.5 mmol/L (3.4-5.1); Sodium 136 mmol/L (137-145); Total Protein 7.4 g/dL (6.3-8.2); Triglycerides 247 mg/dL (35-150)
[2021-10-10 20:10] LABS: Hemoglobin A1C% w Est Avg Glu 8.5 % (4.0-6.0)
[2021-10-10 20:34] LABS: Prostate Specific Antigen 0.351 ng/mL (0.10-4.00); TSH w/ Reflex to FT4 1.44 uIU/mL (0.47-4.68)
[2021-10-10 20:39] LABS: Creatinine Urine Random 88.3 mg/dL
[2021-10-10 20:44] LABS: Microalbumi Creatinin Ratio Ur 157.4 ug/mg CR (<30); Microalbumin Urine Random 13.9 mg/dL (0-1.6)
== END ==
PROVIDERS: PCP Family Medicine; Visit Provider Physician Assistant Medical
DX: E11.22 Type 2 diabetes mellitus with diabetic chronic kidney disease (principal); E11.65 Type 2 diabetes mellitus with hyperglycemia; E11.69 Type 2 diabetes mellitus with other specified complication; E78.2 Mixed hyperlipidemia; E87.5 Hyperkalemia; I50.22 Chronic systolic (congestive) heart failure; K21.9 Gastro-esophageal reflux disease without esophagitis; M54.9 Dorsalgia, unspecified; M86.9 Osteomyelitis, unspecified; N18.30 Chronic kidney disease, stage 3 unspecified; N40.0 Benign prostatic hyperplasia without lower urinary tract symptoms; R10.84 Generalized abdominal pain; Z79.4 Long term (current) use of insulin; S90.519A Abrasion, unspecified ankle, initial encounter; S91.001A Unspecified open wound, right ankle, initial encounter
CPT/HCPCS: 80053; 80061; 82043; 82570; 83036; 84153; 84443; 85025; 87070; 87075; 87077; 87147; 87186; 87205

== ENCOUNTER → 2021-10-16 11:01 | Outpatient (CLI) | payer OTHER, SELFPAY ==
[2021-10-22 11:38] LABS: Fecal Immunochemical Test Positive (Negative)
== END ==
PROVIDERS: PCP Physician Assistant Medical; Referring Provider Physician Assistant Medical; Visit Provider Physician Assistant Medical
DX: E11.22 Type 2 diabetes mellitus with diabetic chronic kidney disease (principal); E11.65 Type 2 diabetes mellitus with hyperglycemia; E11.69 Type 2 diabetes mellitus with other specified complication; E78.2 Mixed hyperlipidemia; E87.5 Hyperkalemia; I50.22 Chronic systolic (congestive) heart failure; K21.9 Gastro-esophageal reflux disease without esophagitis; M54.9 Dorsalgia, unspecified; M86.9 Osteomyelitis, unspecified; N18.30 Chronic kidney disease, stage 3 unspecified; N40.0 Benign prostatic hyperplasia without lower urinary tract symptoms; R10.84 Generalized abdominal pain; Z79.4 Long term (current) use of insulin
CPT/HCPCS: 82274

== ENCOUNTER 2021-12-04 18:44 | Inpatient (IN) | payer OTHER, SELFPAY ==
[2021-12-04] VITALS (13 sets, daily range): BP systolic 136–169; BP diastolic 60–72; PULSE 77–90; RESP 16–22; TEMP 36–36.4; O2SAT 90–96; BMI 29.4
--- NOTE | 2021-12-04 18:57 | DI.RAD.S_ITS ---
PROCEDURE: XR CHEST 2V INDICATIONS: + COVID, COPD, SOB TECHNIQUE: 2 views of the chest were acquired. COMPARISON: [facility], , CHEST 2 VIEW, 02/04/2016, 12:47. FINDINGS: Surgical changes and devices: None. Lungs and pleura: Diffuse chronic interstitial changes with blunting the right costophrenic angle associated atelectasis and or infiltrate. Mediastinum: Mediastinal contours are normal. Heart size is normal. Atherosclerotic vascular calcification noted in the aortic arch. Bones and chest wall: No suspicious bony abnormalities. Soft tissues appear unremarkable. Degenerative glenohumeral joints with suture anchors noted in the left humeral head IMPRESSION: Scattered atelectasis and or infiltrate associated with new right pleural effusion Diffuse chronic interstitial changes Approved by: Arthur Ibarra M.D. on 12/04/2021 at 18:56
--- NOTE | 2021-12-04 20:24 | ED_ITS ---
HPI - URI/Sore Throat General Chief Complaint: Upper Respiratory Symptoms Stated Complaint: COVID +, Advanced COPD, SOB Time Seen by Provider: 12/04/21 20:14 Mode of arrival: Family Vehicle History of Present Illness HPI Narrative: Patient brought in by caregiver, complaints 1 day of cough cold congestion fever. Feeling short of breath. Has history of COPD but not requiring home oxygen. Feels feverish. No nausea or vomiting. No known sick contacts. Denie s any chest pain. No diarrhea. Patient feels general malaise and weakness. Patient is awake alert oriented x4. Answering appropriately. Protecting airway. Related Data Home Medications Medication Instructions Recorded Confirmed cholecalciferol (vitamin D3) 125 125 mcg PO DAILY 06/07/20 12/04/21 mcg (5,000 unit) tablet budesonide-formoterol HFA 160 2 puff inhalation BID 12/04/21 12/04/21 mcg-4.5 mcg/actuation aerosol inhaler (Symbicort) duloxetine 30 mg capsule,delayed 30 mg PO QPM 12/04/21 12/04/21 release duloxetine 30 mg capsule,delayed 60 mg PO QAM 12/04/21 12/04/21 release gabapentin 300 mg capsule 600 mg PO BID 12/04/21 12/04/21 pantoprazole 20 mg tablet,delayed 20 mg PO BID 12/04/21 12/04/21 release Previous Rx's Medication Instructions Recorded alogliptin 12.5 mg tablet 12.5 mg PO DAILY #90 tabs 10/09/21 atorvastatin 40 mg tablet 40 mg PO QPM #90 tabs 10/09/21 empagliflozin 25 mg tablet 12.5 mg PO DAILY #45 tabs 10/09/21 furosemide 20 mg tablet 20 mg PO DAILY #90 tabs 10/09/21 insulin glargine 100 unit/mL (3 30 unit (0.3 mL) SUBCUT BID #15 mL 10/09/21 mL) subcutaneous pen losartan 25 mg tablet 12.5 mg PO BID #90 tabs 10/09/21 metoprolol tartrate 25 mg tablet 25 mg PO BID #180 tabs 10/09/21 tiotropium bromide 18 mcg capsule 1 cap inhalation BEDTIME #90 10/09/21 with inhalation device inhalations Allergies Allergy/AdvReac Type Severity Reaction Status Date / Time atorvastatin Allergy Intermediate Verified 10/23/21 09:15 diclofenac Allergy Unknown Verified 10/23/21 09:15 Sulfa (Sulfonamide Allergy Unknown Verified 10/23/21 09:15 Antibiotics) [SULFA (SULFONAMIDE ANTIBIOTICS)] bupropion AdvReac Unknown LOWERS Verified 10/23/21 09:15 SEIZURE THRESHOLD sulfite AdvReac Verified 10/23/21 09:15 ALL STATINS Allergy Unknown Uncoded 10/23/21 09:15 Review of Systems Review of Systems Narrative: GENERAL: Positive for chills, fatigue, malaise, negative fever, sweats. HEENT: Denies sinus pain, ear pain, sore throat RESPIRATORY: Positive for dyspnea, cough CARDIOVASCULAR: Denies chest pain, palpitations GASTROINTESTINAL: Denies nausea, vomiting, abdominal pain : Denies dysuria, frequency, hematuria MUSCULOSKELETAL: denies muscle or bony pain SKIN: Denies rash, skin lesions NEUROLOGIC: Denies weakness, numbness ROS Unobtainable: All systems reviewed & are unremarkable except as noted in HPI and below Patient History Medical History Diabetes History of cholelithiasis Hypertension Neuropathy PUD (peptic ulcer disease) Right femoral vein DVT Surgical History S/P cholecystectomy S/P rotator cuff repair Social History household members: friend(s) Smoking Status: Current every day smoker alcohol intake: never Smoking Status: Current every day smoker Alcohol type: hard liquor Substance Use Type: does not use Exam Narrative Exam Narrative: GENERAL: in no distress, not toxic not dyspneic HEAD: Normocephalic. EYES: Pupils equal round No scleral icterus. ENT: Mucous membranes moist. NECK: Trachea midline. CARDIOVASCULAR: Regular rate and rhythm without murmurs RESPIRATORY: Speaks full sentences but there is bilateral coarse lung sounds wheezing rhonchi GASTROINTESTINAL: Abdomen soft, non-tender EXTREMITIES: No gross deformities. BACK: No flank tenderness. NEURO: AOx4. SKIN: Warm and dry PSYCH: Not anxious, is cooperative Initial Vital Signs Initial Vital Signs: Vital Signs Temperature 96.8 F L 12/04/21 18:52 Pulse Rate 82 12/04/21 18:52 Respiratory Rate 22 12/04/21 18:52 Blood Pressure 155/70 H 12/04/21 18:52 Pulse Oximetry 95 12/04/21 18:52 Oxygen Delivery Method 12/04/21 18:52 Course Course Course Narrative: No new issues during course of stay Decision to Admit Date: 12/04/21 Decision to Admit time: 22:01 Orders Ordered: ED Orders 12/04/21 18:57 Chest [XR chest 2V] Stat 12/04/21 20:39 Respiratory Panel (Film Array) Stat 12/04/21 20:45 Complete Blood Count AUTO DIFF Stat Comprehensive Metabolic Panel Stat Lactate (Lactic Acid) Stat NT-proBNP (BNP-Adult 18+) Stat Partial Thromboplastin Time Stat Procalcitonin Stat Prothrombin Time INR Stat Troponin & CK Cardiac Panel Stat 12/04/21 21:00 ABG [Arterial Blood Gas] Stat EKG-12 Lead Stat Acetaminophen (Acetaminophen 325 Mg Tablet) 650 mg PO Q6H PRN PRN Reason: Fever/Mild Pain (1-3) Albuterol/Ipratropium (Albuterol/Ipratropium 3 Ml Ampul) 3 ml INH RTTID DONA Albuterol/Ipratropium (Albuterol/Ipratropium 3 Ml Ampul) 3 ml INH RTQ6HR PRN PRN Reason: Shortness Of Breath Atorvastatin Calcium (Atorvastatin 20 Mg Tablet) 40 mg PO QPM [facility] Dexamethasone (Dexamethasone 10 Mg/Ml Vial) 6 mg IV DAILY [facility] Duloxetine HCl (Duloxetine 30 Mg Capsule) 60 mg PO DAILY [facility] Last Admin: 12/04/21 23:38 Dose: 30 mg Documented By: JOSE Enoxaparin Sodium (Enoxaparin 40 Mg/0.4 Ml Syringe) 40 mg SUBCUT DAILY [facility] Furosemide (Furosemide 20 Mg Tablet) 20 mg PO DAILY [facility] Gabapentin (Gabapentin 300 Mg Capsule) 600 mg PO BID [facility] Remdesivir 100 mg/ Sodium (Chloride) 250 mls @ 250 mls/hr IV Q24H [facility] Stop: 12/08/21 23:59 Insulin Glargine (Insulin Glargine 100 Unit/Ml 3ml Pen) 30 unit SUBCUT BID [facility] Last Admin: 12/05/21 00:13 Dose: 30 unit Documented By: JOSE Co-signed By: SHERI Losartan Potassium (Losartan 25 Mg Tablet) 12.5 mg PO BID [facility] Metoprolol Tartrate (Metoprolol Ir 25 Mg Tablet) 25 mg PO BID [facility] Naloxone HCl (Naloxone 0.4 Mg/Ml Vial) 0.2 mg IV Q2MIN PRN PRN Reason: Opiate Reversal Nicotine (Nicotine 21 Mg Patch) 21 mg TOP DAILY [facility] Last Admin: 12/04/21 23:27 Dose: Not Given Documented By: JOSE Non-Formulary Medication (Budesonide-Formoterol [Symbicort]) 2 puff INHALATION BID [facility] Non-Formulary Medication (Tiotropium [place]) 1 cap INHALATION BEDTIME [facility] Ondansetron HCl (Ondansetron 4 Mg/2 Ml Inj) 4 mg IV Q8HR PRN PRN Reason: Nausea And Vomiting Oxycodone HCl (Oxycodone Ir 5 Mg Tablet) 5 mg PO Q3H PRN PRN Reason: Pain, Moderate (4-6) Pantoprazole Sodium (Pantoprazole Dr 20 Mg Tablet) 20 mg PO BID DONA Discontinued Medications Acetaminophen (Acetaminophen 325 Mg Tablet) 650 mg PO NOW ONE Stop: 12/04/21 20:23 Last Admin: 12/04/21 20:37 Dose: 650 mg Documented By: GÓMEZ Albuterol/Ipratropium (Albuterol/Ipratropium 3 Ml Ampul) 3 ml INH NOW ONE Stop: 12/04/21 20:23 Last Admin: 12/04/21 20:43 Dose: 3 ml Documented By: HECTOR Dexamethasone (Dexamethasone 10 Mg/Ml Vial) 6 mg IV NOW ONE Stop: 12/04/21 22:09 Last Admin: 12/04/21 22:39 Dose: 6 mg Documented By: GÓMEZ Gabapentin (Gabapentin 600 Mg Tablet) 600 mg PO NOW ONE Stop: 12/04/21 23:41 Last Admin: 12/05/21 00:13 Dose: 600 mg Documented By: JOSE Remdesivir 200 mg/ Sodium (Chloride) 250 mls @ 250 mls/hr IV NOW ONE Stop: 12/04/21 23:07 Last Admin: 12/04/21 23:22 Dose: 250 mls/hr Documented By: JOSE Reevaluation(s) Reevaluation #1: Patient lung sounds have improved with DuoNeb treatment. Still not requiring supplemental oxygen but does agree for admit Time: 22:01 Consultations Consultation #1: Spoke with hospitalist, Dr. Andujar, will see and admit patient Time: 22:07 Vital Signs Vital signs: Vital Signs - 8 hr 12/04/21 18:52 12/04/21 21:10 12/04/21 19:56 Temperature 96.8 F L Pulse Rate 82 82 Respiratory Rate 22 18 Blood Pressure 155/70 H 142/66 H Pulse Oximetry 95 95 Oxygen Delivery Method Room Air Room Air 12/04/21 19:56 12/04/21 20:00 12/04/21 20:00 Temperature Pulse Rate 85 87 Respiratory Rate Blood Pressure 169/72 H Pulse Oximetry 93 94 Oxygen Delivery Method 12/04/21 20:30 12/04/21 20:31 12/04/21 20:31 Temperature Pulse Rate 79 78 Respiratory Rate Blood Pressure 152/67 H Pulse Oximetry 95 95 Oxygen Delivery Method 12/04/21 21:00 12/04/21 21:30 12/04/21 22:00 Temperature Pulse Rate 77 84 88 Respiratory Rate Blood Pressure Pulse Oximetry 96 94 90 L Oxygen Delivery Method MDM - URI/Sore Throat Differential Diagnosis Differential diagnosis: Likely upper respiratory infection, viral infection, bronchitis and other (COVID/pneumonia/COPD exacerbation) Lab Data Result diagrams: 12/04/21 20:45 12/04/21 20:45 Labs: Lab Results 12/04/21 12/04/21 12/04/21 Range/Units 20:39 20:45 20:45 WBC 11.5 H (4.5-11.0) X10^3/uL RBC 3.55 L (4.5-5.9) X10^6/uL Hgb 11.0 L (13.5-17.5) g/dL Hct 32.7 L (41-53) % MCV 92.0 (80-100) fL MCH 30.9 (26-34) PG MCHC 33.6 (30-36) % RDW 18.3 H (11.6-14.8) % Plt Count 198 (150-400) X10^3/uL Neut % (Auto) 68.4 (50-75) % Lymph % (Auto) 21.7 L (25-40) % [place] % (Auto) 8.9 (3-14) % Eos % (Auto) 0.2 L (2-4) % Baso % (Auto) 0.8 (0-2) % Neut # (Auto) 7900 H (1410-5363) /uL Lymph # (Auto) 2500 (5167-4585) /uL [place] # (Auto) 1000 H (0-900) /uL Eos # (Auto) 0 (0-450) /uL Baso # (Auto) 100 (0-100) /uL PT 11.4 (10.1-12.7) SECONDS INR 1.0 (0.9-1.3) APTT 28 (26-36) SECONDS ABG pH (7.35-7.45) ABG pCO2 (35-45) mmHg ABG pO2 (80-100) mmHg ABG HCO3 (22-26) mmol/L ABG Total CO2 (21-31) mmol/L ABG O2 Saturation (95-100) % ABG Base Excess (-2-2) mmol/L FiO2 Sodium (137-145) mmol/L Potassium (3.4-5.1) mmol/L Chloride (98-107) mmol/L Carbon Dioxide (22-32) mmol/L BUN (9-20) mg/dL Creatinine (0.66-1.25) mg/dL Estimated GFR (>60) mL/min BUN/Creatinine Ratio (6-22) Glucose (80-110) mg/dL Lactate (0.7-2.1) mmol/L Calcium (8.4-10.2) mg/dL Total Bilirubin (0.2-1.3) mg/dL AST (17-59) IU/L ALT (<50) IU/L Alkaline Phosphatase (38-126) U/L Total Creatine Kinase (55-170) U/L CK-MB (CK-2) CK-MB (CK-2) Rel Index Troponin I (0.01-0.034) ng/mL NT-Pro-B Natriuret Pep (<450) pg/mL Total Protein (6.3-8.2) g/dL Albumin (3.5-5.0) g/dL Globulin (1.7-4.1) g/dL Albumin/Globulin Ratio (1.0-2.8) Procalcitonin (<0.5) ng/mL Chlamy pneumoniae PCR Not detected (Not Detect) Adenovirus (PCR) Not detected (Not Detect) B. pertussis DNA (PCR) Not detected (Not Detecte) B.parapertussis DNA PCR Not detected (Not Detecte) Coronavirus OC43 (PCR) Not detected (Not Detect) Coronavirus HKU1 (PCR) Not detected (Not Detect) Coronavirus 229E (PCR) Not detected (Not Detect) SARS-CoV-2 (PCR) Detected H (Not Detecte) Coronavirus NL63 (PCR) Not detected (Not Detect) Human Metapneumovir PCR Not detected (Not Detect) Influenza Type A (PCR) Not detected (Not Detect) Influenza Type B (PCR) Not detected (Not Detect) M. pneumoniae (PCR) Not detected (Not Detect) Parainfluenza 1 (PCR) Not detected (Not Detect) Parainfluenza 2 (PCR) Not detected (Not Detect) Parainfluenza 3 (PCR) Not detected (Not Detect) Parainfluenza 4 (PCR) Not detected (Not Detect) RSV (PCR) Not detected (Not Detect) Entero/Rhino (PCR) Not detected (Not Detect) 12/04/21 12/04/21 12/04/21 Range/Units 20:45 20:45 21:00 WBC (4.5-11.0) X10^3/uL RBC (4.5-5.9) X10^6/uL Hgb (13.5-17.5) g/dL Hct (41-53) % MCV (80-100) fL MCH (26-34) PG MCHC (30-36) % RDW (11.6-14.8) % Plt Count (150-400) X10^3/uL Neut % (Auto) (50-75) % Lymph % (Auto) (25-40) % [place] % (Auto) (3-14) % Eos % (Auto) (2-4) % Baso % (Auto) (0-2) % Neut # (Auto) (8102-2983) /uL Lymph # (Auto) (1572-8832) /uL [place] # (Auto) (0-900) /uL Eos # (Auto) (0-450) /uL Baso # (Auto) (0-100) /uL PT (10.1-12.7) SECONDS INR (0.9-1.3) APTT (26-36) SECONDS ABG pH 7.47 H (7.35-7.45) ABG pCO2 38.2 (35-45) mmHg ABG pO2 72 L (80-100) mmHg ABG HCO3 28 H (22-26) mmol/L ABG Total CO2 29 (21-31) mmol/L ABG O2 Saturation 95 (95-100) % ABG Base Excess 4.0 H (-2-2) mmol/L FiO2 21 Sodium 135 L (137-145) mmol/L Potassium 4.4 (3.4-5.1) mmol/L Chloride 95 L (98-107) mmol/L Carbon Dioxide 30 (22-32) mmol/L BUN 24 H (9-20) mg/dL Creatinine 1.11 (0.66-1.25) mg/dL Estimated GFR > 60 (>60) mL/min BUN/Creatinine Ratio 21.6 (6-22) Glucose 289 H (80-110) mg/dL Lactate 1.9 (0.7-2.1) mmol/L Calcium 8.8 (8.4-10.2) mg/dL Total Bilirubin 0.3 (0.2-1.3) mg/dL AST 40 (17-59) IU/L ALT 36 (<50) IU/L Alkaline Phosphatase 98 (38-126) U/L Total Creatine Kinase 28 L (55-170) U/L CK-MB (CK-2) TNP CK-MB (CK-2) Rel Index TNP Troponin I < 0.012 (0.01-0.034) ng/mL NT-Pro-B Natriuret Pep 850 H (<450) pg/mL Total Protein 7.4 (6.3-8.2) g/dL Albumin 3.9 (3.5-5.0) g/dL Globulin 3.5 (1.7-4.1) g/dL Albumin/Globulin Ratio 1.1 (1.0-2.8) Procalcitonin 0.19 (<0.5) ng/mL Chlamy pneumoniae PCR (Not Detect) Adenovirus (PCR) (Not Detect) B. pertussis DNA (PCR) (Not Detecte) B.parapertussis DNA PCR (Not Detecte) Coronavirus OC43 (PCR) (Not Detect) Coronavirus HKU1 (PCR) (Not Detect) Coronavirus 229E (PCR) (Not Detect) SARS-CoV-2 (PCR) (Not Detecte) Coronavirus NL63 (PCR) (Not Detect) Human Metapneumovir PCR (Not Detect) Influenza Type A (PCR) (Not Detect) Influenza Type B (PCR) (Not Detect) M. pneumoniae (PCR) (Not Detect) Parainfluenza 1 (PCR) (Not Detect) Parainfluenza 2 (PCR) (Not Detect) Parainfluenza 3 (PCR) (Not Detect) Parainfluenza 4 (PCR) (Not Detect) RSV (PCR) (Not Detect) Entero/Rhino (PCR) (Not Detect) Imaging Data Chest x-ray: Radiologist's Impression: [address] [id number] XRay Report Signed Patient: Chava Leyva MR#: [id number] : 1945 Acct:[id number] Age/Sex: 76 / M Date of Service: 12/04/21 Loc: ED Accession Number: [id number] ?? Procedure: XR chest 2V Ordering Provider: Sarthak Neville MD PROCEDURE:? XR CHEST 2V ? INDICATIONS:? + COVID, COPD, SOB ? TECHNIQUE:? 2 views of the chest were acquired.? ? COMPARISON:? [facility], , CHEST 2 VIEW, 02/04/2016, 12:47. ? FINDINGS:? ? Surgical changes and devices:? None.? ? Lungs and pleura:? Diffuse chronic interstitial changes with blunting the right costophrenic angle associated atelectasis and or infiltrate. ? Mediastinum:? Mediastinal contours are normal.? Heart size is normal.? Atherosclerotic vascular calcification noted in the aortic arch. ? Bones and chest wall:? No suspicious bony abnormalities.? Soft tissues appear unremarkable.? Degenerative glenohumeral joints with suture anchors noted in the left humeral head ? IMPRESSION:? ? Scattered atelectasis and or infiltrate associated with new right pleural effusion ? Diffuse chronic interstitial changes ? ? ? Approved by: Arthur Ibarra M.D. on 12/04/2021 at 18:56? ECG Data Interpretation: Normal sinus rhythm, right bundle-branch block, rate 76, no ST elevation or depression MDM Narrative Medical decision making narrative: Appropriate for admission for COPD exacerbation/pneumonia. However at this time patient not requiring supplemental oxygen but feels very short of breath when exertion. Did improve with breathing treatment. Spoke with hospitalist and will admit patient Discharge Plan Departure Patient Disposition: Admitted as Observation Clinical Impression: Pneumonia due to 2019 novel coronavirus, COPD (chronic obstructive pulmonary disease) with emphysema Admit Date/Time: 12/04/21 22:21 Admit Provider: Ponce Aguilar
[2021-12-04] MEDS: ACETAMINOPHEN 325 MG TABLET 650 MG PO (20:37)
[2021-12-04] MEDS: ALBUTEROL/IPRATROPIUM 3 ML AMPUL INH (20:43)
[2021-12-04 21:07] LABS: Add Manual Diff / Slide Review NO; Basophils Absolute Auto 100 /uL (0-100); Basophils Percent Auto 0.8 % (0-2); Eosinophils Absolute Auto 0 /uL (0-450); Eosinophils Percent Auto 0.2 % (2-4); Hematocrit 32.7 % (41-53); Lymphocytes Absolute Auto 2500 /uL (1100-4500); Lymphocytes Percent Auto 21.7 % (25-40); Mean Corpuscular HGB Conc 33.6 % (30-36); Mean Corpuscular Hemoglobin 30.9 PG (26-34); Monocytes Absolute Auto 1000 /uL (0-900); Monocytes Percent Auto 8.9 % (3-14); Neutrophils Absolute Auto 7900 /uL (1500-7000); Neutrophils Percent Auto 68.4 % (50-75); Platelet Count 198 X10^3/uL (150-400); Red Blood Cell Count 3.55 X10^6/uL (4.5-5.9); Red Cell Distribution Width 18.3 % (11.6-14.8); White Blood Cell Count 11.5 X10^3/uL (4.5-11.0)
[2021-12-04 21:12] LABS: Prothrombin Time 11.4 SECONDS (10.1-12.7)
[2021-12-04 21:14] LABS: PTT Partial Thromboplastin Tim 28 SECONDS (26-36)
[2021-12-04 21:19] LABS: Alanine Aminotransferase 36 IU/L (<50); Albumin 3.9 g/dL (3.5-5.0); Albumin Globulin Ratio 1.1 (1.0-2.8); Alkaline Phosphatase 98 U/L (38-126); Aspartate Aminotransferase 40 IU/L (17-59); BUN Creatinine Ratio 21.6 (6-22); Bilirubin Total 0.3 mg/dL (0.2-1.3); Blood Urea Nitrogen 24 mg/dL (9-20); Calcium 8.8 mg/dL (8.4-10.2); Carbon Dioxide 30 mmol/L (22-32); Chloride 95 mmol/L (98-107); Creatine Kinase 28 U/L (55-170); Estimated Glomerular Filt Rate > 60 mL/min (>60); Globulin 3.5 g/dL (1.7-4.1); Glucose 289 mg/dL (80-110); HEMOLYSIS < 15 (0-50); Potassium 4.4 mmol/L (3.4-5.1); Sodium 135 mmol/L (137-145); Total Protein 7.4 g/dL (6.3-8.2)
[2021-12-04 21:20] LABS: Lactate (Lactic Acid) 1.9 mmol/L (0.7-2.1)
[2021-12-04 21:31] LABS: NT-proBNP (BNP-Adult 18+) 850 pg/mL (<450); Troponin I < 0.012 ng/mL (0.01-0.034)
[2021-12-04 21:36] LABS: Procalcitonin 0.19 ng/mL (<0.5)
[2021-12-04 21:41] LABS: HCO3 ABG 28 mmol/L (22-26); Oxygen Saturation ABG 95 % (95-100); PCO2 ABG 38.2 mmHg (35-45); PO2 ABG 72 mmHg (80-100); TCO2 ABG 29 mmol/L (21-31); pH ABG 7.47 (7.35-7.45)
[2021-12-04 21:42] LABS: Fractionated Inspired Oxygen 21
[2021-12-04 22:01] LABS: Adenovirus Not Detected (Not Detect); B. parapertussis Not Detected (Not Detecte); Bordetella pertussis Not Detected (Not Detecte); Chlamydophila pneumoniae Not Detected (Not Detect); Coronavirus 229E Not Detected (Not Detect); Coronavirus HKU1 Not Detected (Not Detect); Coronavirus NL 63 Not Detected (Not Detect); Coronavirus OC43 Not Detected (Not Detect); Human Metapneumovirus Not Detected (Not Detect); Human Rhinovirus/Enterovirus Not Detected (Not Detect); Influenza A Not Detected (Not Detect); Influenza B Not Detected (Not Detect); Mycoplasma pneumoniae Not Detected (Not Detect); Parainfluenza Virus 1 Not Detected (Not Detect); Parainfluenza Virus 2 Not Detected (Not Detect); Parainfluenza Virus 3 Not Detected (Not Detect); Parainfluenza Virus 4 Not Detected (Not Detect); Respiratory Syncytial Virus Not Detected (Not Detect)
[2021-12-04 22:02] LABS: SARS- CoV-2 Detected (Not Detecte)
[2021-12-04] MEDS: DEXAMETHASONE 10 MG/ML VIAL 6 MG IV (22:39)
[2021-12-04] MEDS: REMDESIVIR 200 MG in SODIUM CHLORIDE 0.9% 210 ML 250 MG IV (23:22)
--- NOTE | 2021-12-04 23:33 | P.HP_ITS ---
History of Present Illness History of Present Illness Date Patient Seen: 12/04/21 Chief complaint: COVID +, Advanced COPD, SOB Narrative: Patient brought in by caregiver, complaints 1 day of cough cold congestion fever.? Feeling short of breath.? Has history of COPD but not requiring home oxygen.? Feels feverish.? No nausea or vomiting.? No known sick contacts.? Denies any chest pain.? No diarrhea.? Patient feels general malaise and weakness.? Patient is awake alert oriented x4.? Answering appropriately.? Protecting airway. When I saw the patient in the ER he was sleepy but arousable and able to make a reasonable conversation. He says that he started feeling better, cough is imp roving, breathing status is also improving. He denies any chest pain. He is not really sure about any COVID contacts at this time. His son lives in [place] and daughter lives in [facility] but his primary photoresist contact printer is his friend Jd and also the caregiver. When I saw the patient Jd was not at bedside, patient requested not to call him at this time unless it is an emergency. Patient History Medical History Diabetes History of cholelithiasis Hypertension Neuropathy PUD (peptic ulcer disease) Right femoral vein DVT Surgical History S/P cholecystectomy S/P rotator cuff repair Family & Social History Family history unavailable: Yes Social History: Patient continues to smoke and he has been smoker for several years, lives with the care asst Jd. Denies any substance abuse or alcohol use. Says he is active at baseline, does require some help in daily activities Safety & Behavioral: Feels Safe in Current Yes Environment Been Physically Hurt or No Threatened By a Person Tobacco & Substance use: Smoking Status Current every day smoker Substance Use Type does not use Meds Home Medications and Allergies Home Medications Medication Instructions Recorded Confirmed Type cholecalciferol (vitamin D3) 125 125 mcg PO DAILY 06/07/20 12/04/21 History mcg (5,000 unit) tablet alogliptin 12.5 mg tablet 12.5 mg PO DAILY #90 tabs 10/09/21 12/04/21 Rx atorvastatin 40 mg tablet 40 mg PO QPM #90 tabs 10/09/21 12/04/21 Rx empagliflozin 25 mg tablet 12.5 mg PO DAILY #45 tabs 10/09/21 12/04/21 Rx furosemide 20 mg tablet 20 mg PO DAILY #90 tabs 10/09/21 12/04/21 Rx insulin glargine 100 unit/mL (3 30 unit (0.3 mL) SUBCUT BID #15 mL 10/09/21 12/04/21 Rx mL) subcutaneous pen losartan 25 mg tablet 12.5 mg PO BID #90 tabs 10/09/21 12/04/21 Rx metoprolol tartrate 25 mg tablet 25 mg PO BID #180 tabs 10/09/21 12/04/21 Rx tiotropium bromide 18 mcg capsule 1 cap inhalation BEDTIME #90 10/09/21 12/04/21 Rx with inhalation device inhalations budesonide-formoterol HFA 160 2 puff inhalation BID 12/04/21 12/04/21 History mcg-4.5 mcg/actuation aerosol inhaler (Symbicort) duloxetine 30 mg capsule,delayed 30 mg PO QPM 12/04/21 12/04/21 History release duloxetine 30 mg capsule,delayed 60 mg PO QAM 12/04/21 12/04/21 History release gabapentin 300 mg capsule 600 mg PO BID 12/04/21 12/04/21 History pantoprazole 20 mg tablet,delayed 20 mg PO BID 12/04/21 12/04/21 History release Allergies Allergy/AdvReac Type Severity Reaction Status Date / Time atorvastatin Allergy Intermediate Verified 10/23/21 09:15 diclofenac Allergy Unknown Verified 10/23/21 09:15 Sulfa (Sulfonamide Allergy Unknown Verified 10/23/21 09:15 Antibiotics) [SULFA (SULFONAMIDE ANTIBIOTICS)] bupropion AdvReac Unknown LOWERS Verified 10/23/21 09:15 SEIZURE THRESHOLD sulfite AdvReac Verified 10/23/21 09:15 ALL STATINS Allergy Unknown Uncoded 10/23/21 09:15 Review of Systems Review of Systems Narrative: All other systems reviewed, negative other than as mentioned above Exam Vital Signs (past 8 hours): - 12/04/21 18:52 12/04/21 21:10 12/04/21 19:56 Temperature 96.8 F L Pulse Rate 82 82 Respiratory Rate 22 18 Blood Pressure 155/70 H 142/66 H Pulse Oximetry 95 95 Oxygen Delivery Method Room Air Room Air 12/04/21 19:56 12/04/21 20:00 12/04/21 20:00 Temperature Pulse Rate 85 87 Respiratory Rate Blood Pressure 169/72 H Pulse Oximetry 93 94 Oxygen Delivery Method 12/04/21 20:30 12/04/21 20:31 12/04/21 20:31 Temperature Pulse Rate 79 78 Respiratory Rate Blood Pressure 152/67 H Pulse Oximetry 95 95 Oxygen Delivery Method 12/04/21 21:00 12/04/21 21:30 12/04/21 22:00 Temperature Pulse Rate 77 84 88 Respiratory Rate Blood Pressure Pulse Oximetry 96 94 90 L Oxygen Delivery Method 12/04/21 22:30 12/04/21 22:44 12/04/21 22:44 Temperature Pulse Rate 90 89 Respiratory Rate Blood Pressure 136/60 Pulse Oximetry 94 95 Oxygen Delivery Method 12/04/21 23:00 12/04/21 23:00 12/04/21 23:30 Temperature 97.6 F Pulse Rate 87 82 Respiratory Rate 16 Blood Pressure 148/68 H 142/66 H Pulse Oximetry 94 95 Oxygen Delivery Method Oxygen Delivery Method Room Air Narrative Exam Narrative: Patient very sleepy, arousable, goes back to sleep as he seems tired. His breathing status seems to be stable, when speaking long sentences might be using accessory muscles, poor air entry on both lung alarcon consistent with COPD, some basal crackles noted. Patient also positive for some wheeze in left upper lobe. Having some intermittent cough when he is taking deep breaths. No abdominal discomfort. Constitutional, HEENT, cardiovascular, pulmonary, GI, neuro, skin, psych exam done, negative other than as mentioned above but neuro and psych exam is limited because of the patient being sleepy. Objective Labs Result Diagrams: 12/04/21 20:45 12/04/21 20:45 Labs: Laboratory Results - last 24 hr 12/04/21 12/04/21 12/04/21 20:39 20:45 20:45 WBC 11.5 H RBC 3.55 L Hgb 11.0 L Hct 32.7 L MCV 92.0 MCH 30.9 MCHC 33.6 RDW 18.3 H Plt Count 198 Neut % (Auto) 68.4 Lymph % (Auto) 21.7 L [place] % (Auto) 8.9 Eos % (Auto) 0.2 L Baso % (Auto) 0.8 Neut # (Auto) 7900 H Lymph # (Auto) 2500 [place] # (Auto) 1000 H Eos # (Auto) 0 Baso # (Auto) 100 PT 11.4 INR 1.0 APTT 28 ABG pH ABG pCO2 ABG pO2 ABG HCO3 ABG Total CO2 ABG O2 Saturation ABG Base Excess FiO2 Sodium Potassium Chloride Carbon Dioxide BUN Creatinine Estimated GFR BUN/Creatinine Ratio Glucose Lactate Calcium Total Bilirubin AST ALT Alkaline Phosphatase Total Creatine Kinase CK-MB (CK-2) CK-MB (CK-2) Rel Index Troponin I NT-Pro-B Natriuret Pep Total Protein Albumin Globulin Albumin/Globulin Ratio Procalcitonin Chlamy pneumoniae PCR Not detected Adenovirus (PCR) Not detected B. pertussis DNA (PCR) Not detected B.parapertussis DNA PCR Not detected Coronavirus OC43 (PCR) Not detected Coronavirus HKU1 (PCR) Not detected Coronavirus 229E (PCR) Not detected SARS-CoV-2 (PCR) Detected H Coronavirus NL63 (PCR) Not detected Human Metapneumovir PCR Not detected Influenza Type A (PCR) Not detected Influenza Type B (PCR) Not detected M. pneumoniae (PCR) Not detected Parainfluenza 1 (PCR) Not detected Parainfluenza 2 (PCR) Not detected Parainfluenza 3 (PCR) Not detected Parainfluenza 4 (PCR) Not detected RSV (PCR) Not detected Entero/Rhino (PCR) Not detected 12/04/21 12/04/21 12/04/21 20:45 20:45 21:00 WBC RBC Hgb Hct MCV MCH MCHC RDW Plt Count Neut % (Auto) Lymph % (Auto) [place] % (Auto) Eos % (Auto) Baso % (Auto) Neut # (Auto) Lymph # (Auto) [place] # (Auto) Eos # (Auto) Baso # (Auto) PT INR APTT ABG pH 7.47 H ABG pCO2 38.2 ABG pO2 72 L ABG HCO3 28 H ABG Total CO2 29 ABG O2 Saturation 95 ABG Base Excess 4.0 H FiO2 21 Sodium 135 L Potassium 4.4 Chloride 95 L Carbon Dioxide 30 BUN 24 H Creatinine 1.11 Estimated GFR > 60 BUN/Creatinine Ratio 21.6 Glucose 289 H Lactate 1.9 Calcium 8.8 Total Bilirubin 0.3 AST 40 ALT 36 Alkaline Phosphatase 98 Total Creatine Kinase 28 L CK-MB (CK-2) TNP CK-MB (CK-2) Rel Index TNP Troponin I < 0.012 NT-Pro-B Natriuret Pep 850 H Total Protein 7.4 Albumin 3.9 Globulin 3.5 Albumin/Globulin Ratio 1.1 Procalcitonin 0.19 Chlamy pneumoniae PCR Adenovirus (PCR) B. pertussis DNA (PCR) B.parapertussis DNA PCR Coronavirus OC43 (PCR) Coronavirus HKU1 (PCR) Coronavirus 229E (PCR) SARS-CoV-2 (PCR) Coronavirus NL63 (PCR) Human Metapneumovir PCR Influenza Type A (PCR) Influenza Type B (PCR) M. pneumoniae (PCR) Parainfluenza 1 (PCR) Parainfluenza 2 (PCR) Parainfluenza 3 (PCR) Parainfluenza 4 (PCR) RSV (PCR) Entero/Rhino (PCR) Assessment & Plan Assessment and plan (1) Pneumonia due to 2019 novel coronavirus: Status: Acute Assessment & Plan narrative: Sepsis present on time of admission secondary to COVID pneumonia -given hypoxia and overall clinical status patient will be admitted, IV remdesivir and also IV steroids. Given his significant underlying COPD and ongoing smoking history, patient will be monitored very closely. Any further deterioration of the breathing status will consider high-flow nasal cannula, move him to ICU but at this time patient probably appropriate for medical floor. Encouraged deep breathing, incentive spirometry, ambulation as tolerated. Transitioned to p.o. if clinically improving and no further hypoxia, we will check a walking pulse ox to ensure. Repeat chest x-ray in case no clinical progress in next 24 hours Acute COPD exacerbation most likely secondary to COVID infection -steroids and DuoNebs, close monitoring Insulin-dependent type 2 diabetes mellitus -diabetic diet, sliding-scale insulin Peripheral neuropathy, diabetic -continue gabapentin Lovenox for DVT prophylaxis, ppi for GI prophylaxis Patient is full code Care plan extensively discussed with the patient and offered to talk to the primary caregiver. Answered all questions. Overall prognosis is guarded Time Spent With Patient Critical Care time: I spent a total of [] minutes of critical care time on this patient's care today; this time is exclusive of procedural time.
[2021-12-04] MEDS: DULOXETINE 30 MG CAPSULE 60 MG PO (23:38)
--- NOTE | 2021-12-04 23:45 | PC.NURSE ---
Patient admitted to 229 for SOB d/t COVID. Patient admitted on RA saturating > 94%, has wet, loose cough, and complains of being SOB with exertion. Patient A&O x4 and able to answer all admission questions. Remdesivir administered. Urinal at bedside. Bed alarm on. RN will continue to monitor.
[2021-12-05] VITALS (28 sets, daily range): BP systolic 84–140; BP diastolic 50–65; PULSE 70–93; RESP 18–20; TEMP 36.3–37.1; O2SAT 89–97
[2021-12-05] MEDS: GABAPENTIN 600 MG TABLET PO (00:13)
[2021-12-05] MEDS: INSULIN GLARGINE 100 UNIT/ML 3ML PEN 30 UNIT SUBCUT ×3 (00:13→20:44)
[2021-12-05] MEDS: METOPROLOL IR 25 MG TABLET PO ×2 (08:40→20:09)
[2021-12-05] MEDS: ENOXAPARIN 40 MG/0.4 ML SYRINGE SUBCUT (08:40)
[2021-12-05] MEDS: PANTOPRAZOLE DR 20 MG TABLET PO ×2 (08:40→20:12)
[2021-12-05] MEDS: DULOXETINE 30 MG CAPSULE 60 MG PO (08:40)
[2021-12-05] MEDS: GABAPENTIN 300 MG CAPSULE 600 MG PO ×2 (08:41→20:09)
[2021-12-05] MEDS: FUROSEMIDE 20 MG TABLET PO (08:41)
[2021-12-05] MEDS: LOSARTAN 25 MG TABLET 12.5 MG PO ×2 (08:41→20:12)
[2021-12-05] MEDS: DEXAMETHASONE 10 MG/ML VIAL 6 MG IV (08:42)
[2021-12-05] MEDS: ALBUTEROL/IPRATROPIUM 3 ML AMPUL INH (10:32)
[2021-12-05] MEDS: BUDESONIDE 0.5 MG/2 ML NEB INH (10:33)
--- NOTE | 2021-12-05 11:42 | CM.DANOTE ---
DCP Assessment: Payor confirmed: [facility] PCP confirmed: Columba Amaya MD Pt is a 76 y.o. M who presented to the ED by his caregiver with complaints of coughing and cold congestion symptoms. Pt stated he was feeling short of breath in the ED. Pt diagnosed with COVID and admitted to the floor for further management and evaluation of his diagnosis. DCP unable to meet with pt bedside but was able to get ahold of him by room telephone. DCP introduced herself and role. Pt states that he lives with his son, Jd, who is also his POA and continuous absorption process operator. Pt states that he uses an electric scooter and his sons van has a wheelchair lift where he can get in and out of the car. Pt states that he can do his ADL's by himself but son is there if needing assistance. Pt states that his son does all the cooking and cleaning. Pt did not have any requests for resources or needs for discharge. Pt son will pick him up upon discharge. Pt thankful for discussion. P: Pt to receive doses of remdesivier and once completed, anticipate discharge home via son POV. Zoe Aguilar RN/DEWAYNE Discharge Planning/Care Management CM Discharge Assessment Start: 12/05/21 11:40 Freq: Status: Active Protocol: Document 12/05/21 11:40 MYRIAM (Rec: 12/05/21 11:41 [id number]) Discharge Planning Assessment Assigned Dye Range Operator Zoe Aguilar RN/DEWAYNE DPOA/Assigned Designee Name Jd Delacruz Advance Directives? Yes Advance Directives on File Yes History Provided By Patient Prior Living Arrangements Mobile home Household Members children Comment Jd is pt adopted son and POA. Independent with ADL's Yes Is patient alert and oriented? Yes Caregiver for Another No DME Already Rented / Owned Other Comment Electric scooter Discharge Plan Home Transportation Arrangement Jd POV Referrals Initiated None needed Whiteboard Updated in Patient Room with No name and ext. # of Dye Range Operator Comment Unable to enter room but provided pt on how to get ahold of care management. Review Status In Process Please Provide Date Initial DC 12/05/21 Assessment Was Performed Next Review Type Continued Stay Review
--- NOTE | 2021-12-05 16:28 | PC.NURSE ---
Addendum entered by Rain Valera R.N. 12/06/21 08:41: I agree with all of this student nurse assessments and interventions- Rain Valera RN Original Note: Day Shift note: Patient A&Ox4, SBA, vital signs stable. Room air saturations between 91%-97%. Lungs expiratory wheezes bilaterally with wet cough and shortness of breath with exertion. Blood sugar at lunch in 300's. Provider ordered sliding scale for dinner. Patient up to chair for lunch then back to bed and able to verbalize needs and use call light. Alarm set, bed locked, call light within reach. Will continue to monitor.
[2021-12-05] MEDS: ATORVASTATIN 20 MG TABLET 40 MG PO (17:15)
--- NOTE | 2021-12-05 17:15 | DIET.CONS2 ---
Dietary Inpatient Consultation Note Admission Date: 12/04/2021 22:21 RD spoke c nursing regarding pt education on DM and poor appetite. Attempted to call patient in room, however, no answer. Pt covid+ status. Will attempt consult again Thursday morning. Diet: 12/04/21 Breakfast Carbohydrate Consistent Diet Diet Modifications: Carbohydrate level: Large (4 CHO) Nutrition Percent Meal Consumed 100% 12/05/21 14:00 Electronically Signed by: Cris Delacruz 12/05/21 17:15 Clinical Dietitian [address] [address]
[2021-12-05] MEDS: INSULIN REGULAR 100 UNIT/ML 3 ML VIAL SUBCUT ×2 (17:16→20:45)
[2021-12-05] MEDS: ACETAMINOPHEN 325 MG TABLET 650 MG PO (20:10)
[2021-12-05] MEDS: SODIUM CHLORIDE 0.9% FLUSH 10 ML IV (20:12)
[2021-12-05] MEDS: GABAPENTIN 300 MG CAPSULE 900 MG PO (20:43)
[2021-12-05] MEDS: DULOXETINE 30 MG CAPSULE PO (20:44)
--- NOTE | 2021-12-05 21:08 | PM.PN.1 ---
Subjective Subjective Date Patient Seen: 12/05/21 Time Patient Seen: 20:00 Interval history: He continues to complain about cough and shortness of breath. He looks quite uncomfortable. Exam Vital Signs (past 8 hours): - 12/05/21 17:00 12/05/21 16:27 12/05/21 14:00 Temperature 98.7 F Pulse Rate 70 Respiratory Rate Blood Pressure Pulse Oximetry 93 96 Oxygen Delivery Method Room Air Oxygen Flow Rate 0 12/05/21 16:00 12/05/21 16:21 12/05/21 16:21 Temperature Pulse Rate 79 85 Respiratory Rate Blood Pressure 128/63 Pulse Oximetry 94 94 Oxygen Delivery Method Oxygen Flow Rate 12/05/21 20:12 12/05/21 20:00 Temperature 97.6 F Pulse Rate 70 75 Respiratory Rate 18 Blood Pressure 140/65 140/65 Pulse Oximetry 93 Oxygen Delivery Method Oxygen Flow Rate Oxygen Delivery Method Room Air Oxygen Flow Rate 0 Narrative Exam Narrative: GEN: coughing through exam CV: regular rate and rhythm PULM: increased work of breathing, poor air movement, and coarse breath sounds throughout lung alarcon Objective Labs Result Diagrams: 12/04/21 20:45 12/04/21 20:45 Labs: Laboratory Results - last 24 hr 12/04/21 12/04/21 12/04/21 20:39 20:45 20:45 WBC 11.5 H RBC 3.55 L Hgb 11.0 L Hct 32.7 L MCV 92.0 MCH 30.9 MCHC 33.6 RDW 18.3 H Plt Count 198 Neut % (Auto) 68.4 Lymph % (Auto) 21.7 L [place] % (Auto) 8.9 Eos % (Auto) 0.2 L Baso % (Auto) 0.8 Neut # (Auto) 7900 H Lymph # (Auto) 2500 [place] # (Auto) 1000 H Eos # (Auto) 0 Baso # (Auto) 100 PT 11.4 INR 1.0 APTT 28 ABG pH ABG pCO2 ABG pO2 ABG HCO3 ABG Total CO2 ABG O2 Saturation ABG Base Excess FiO2 Sodium Potassium Chloride Carbon Dioxide BUN Creatinine Estimated GFR BUN/Creatinine Ratio Glucose Lactate Calcium Total Bilirubin AST ALT Alkaline Phosphatase Total Creatine Kinase CK-MB (CK-2) CK-MB (CK-2) Rel Index Troponin I NT-Pro-B Natriuret Pep Total Protein Albumin Globulin Albumin/Globulin Ratio Procalcitonin Chlamy pneumoniae PCR Not detected Adenovirus (PCR) Not detected B. pertussis DNA (PCR) Not detected B.parapertussis DNA PCR Not detected Coronavirus OC43 (PCR) Not detected Coronavirus HKU1 (PCR) Not detected Coronavirus 229E (PCR) Not detected SARS-CoV-2 (PCR) Detected H Coronavirus NL63 (PCR) Not detected Human Metapneumovir PCR Not detected Influenza Type A (PCR) Not detected Influenza Type B (PCR) Not detected M. pneumoniae (PCR) Not detected Parainfluenza 1 (PCR) Not detected Parainfluenza 2 (PCR) Not detected Parainfluenza 3 (PCR) Not detected Parainfluenza 4 (PCR) Not detected RSV (PCR) Not detected Entero/Rhino (PCR) Not detected 12/04/21 12/04/21 12/04/21 20:45 20:45 21:00 WBC RBC Hgb Hct MCV MCH MCHC RDW Plt Count Neut % (Auto) Lymph % (Auto) [place] % (Auto) Eos % (Auto) Baso % (Auto) Neut # (Auto) Lymph # (Auto) [place] # (Auto) Eos # (Auto) Baso # (Auto) PT INR APTT ABG pH 7.47 H ABG pCO2 38.2 ABG pO2 72 L ABG HCO3 28 H ABG Total CO2 29 ABG O2 Saturation 95 ABG Base Excess 4.0 H FiO2 21 Sodium 135 L Potassium 4.4 Chloride 95 L Carbon Dioxide 30 BUN 24 H Creatinine 1.11 Estimated GFR > 60 BUN/Creatinine Ratio 21.6 Glucose 289 H Lactate 1.9 Calcium 8.8 Total Bilirubin 0.3 AST 40 ALT 36 Alkaline Phosphatase 98 Total Creatine Kinase 28 L CK-MB (CK-2) TNP CK-MB (CK-2) Rel Index TNP Troponin I < 0.012 NT-Pro-B Natriuret Pep 850 H Total Protein 7.4 Albumin 3.9 Globulin 3.5 Albumin/Globulin Ratio 1.1 Procalcitonin 0.19 Chlamy pneumoniae PCR Adenovirus (PCR) B. pertussis DNA (PCR) B.parapertussis DNA PCR Coronavirus OC43 (PCR) Coronavirus HKU1 (PCR) Coronavirus 229E (PCR) SARS-CoV-2 (PCR) Coronavirus NL63 (PCR) Human Metapneumovir PCR Influenza Type A (PCR) Influenza Type B (PCR) M. pneumoniae (PCR) Parainfluenza 1 (PCR) Parainfluenza 2 (PCR) Parainfluenza 3 (PCR) Parainfluenza 4 (PCR) RSV (PCR) Entero/Rhino (PCR) [facility] Medical History Diabetes History of cholelithiasis Hypertension Neuropathy PUD (peptic ulcer disease) Right femoral vein DVT Surgical History S/P cholecystectomy S/P rotator cuff repair Social History household members: children Smoking Status: Current every day smoker alcohol intake: never Assessment & Plan Assessment and plan (1) Pneumonia due to 2019 novel coronavirus: Status: Acute Assessment & Plan narrative: 1. Sepsis secondary COVID pneumonia withe acute hypoxemic respiratory failure Acute COPD exacerbation secondary to above -continue IV remdesivir and IV steroids -Encouraged deep breathing, incentive spirometry, ambulation as tolerated. -steroids and DuoNebs, close monitoring 2. Insulin-dependent type 2 diabetes mellitus -diabetic diet, sliding-scale insulin 3. Peripheral neuropathy, diabetic -continue gabapentin Lovenox for DVT prophylaxis, ppi for GI prophylaxis Patient is full code Time Spent With Patient Critical Care time: I spent a total of [] minutes of critical care time on this patient's care today; this time is exclusive of procedural time.
[2021-12-05] MEDS: REMDESIVIR 100 MG in SODIUM CHLORIDE 0.9% 230 ML 250 MG IV (23:14)
--- NOTE | 2021-12-05 23:42 | DI.CT.S_ITS ---
PROCEDURE: CT ANGIO CHEST PE PROTOCOL INDICATIONS: PE? chest pain TECHNIQUE: After the administration of intravenous contrast, 2 mm thick sections acquired from the pulmonary apices to the posterior costophrenic angles. 3-dimensional maximum intensity projection (MIP) coronal and sagittal reformats were then acquired through the thorax. For radiation dose reduction, the following was used: automated exposure control, adjustment of mA and/or kV according to patient size. COMPARISON: None. FINDINGS: Image quality: Excellent. Pulmonary arteries: Pulmonary arteries are prominent in size, and demonstrate no intraluminal filling defects to suggest central pulmonary embolism. Lungs and pleura: 3 pleural based soft tissue density mass are seen involving right apex measures up to 2.9 x 3 x 1.6 cm in size series 4, image 23 and 6 are is 6 image 59. 1.4 x 0.9 cm enhancing nodule involving right upper lobe posterior pleura is also seen series 4, image 47. Moderate right pleural effusion is seen with adjacent atelectasis in posterior aspect of right upper lobe and right lower lobe. Chronic reticular nodular thickening in periphery of bilateral lung alarcon are seen suggestive of interstitial pulmonary fibrosis. Ill-defined opacity in posterior aspect of left upper lobe is seen series 5, image 110 concerning for small left upper lobe infiltrate. 7 millimeters nodule in anterior aspect of right middle lobe is seen series 5, image 208. No left-sided pleural effusion. No pneumothorax. Central and peripheral airways are patent. Mediastinum: Heart size is enlarged, without pericardial effusion. [id number] atherosclerotic calcifications in coronary vessels are seen. Lobulated soft tissue density mass in right hilar region is seen extending to right paratracheal space measures up to 7.4 x 6.7 x 7.5 cm in its largest AP, transverse and craniocaudal dimensions and significant mass effect on the adjacent right hilar structures. Additional mediastinal and hilar lymphadenopathies also seen measures up to 1.4 cm in size in subcarinal space. Thoracic aorta is normal in caliber and enhancement. Esophagus is normal in caliber, without hiatal hernia. Bones and chest wall: No suspicious bony lesions. Ribs and thoracic spine appear intact throughout. Thyroid gland is within normal limits. No axillary or supraclavicular adenopathy. Abdomen: Visualized upper abdominal solid organs appear normal in the early arterial phase of enhancement. IMPRESSION: 1. 3 enhancing soft tissue density lesions involving right a pickle pleura as above. Additional pleural based enhancing lesion also noted in right posterior upper lobe. Moderate right pleural effusion. Sub centimeter spiculated nodule in right middle lobe as above. Finding is highly concerning for primary or metastatic lung lesions. 2. Large right hilar mass extending to right mediastinum measures 7.4 x 6.7 x 7.5 cm in size suggestive of large hilar malignant mass versus lymphadenopathy. This mass is likely amenable to trans bronchial biopsy. Additional enlarged lymph nodes are also seen scattered in mediastinum concerning for metastatic disease. 3. Chronic interstitial lung parenchymal disease. No pneumothorax. 4. No evidence of pulmonary emboli. Prominence of main pulmonary trunk which can be seen associated with pulmonary vascular hypertension. Dictated by: Raheem Tobin M.D. on 12/06/2021 at 0:38 Approved by: Raheem Tobin M.D. on 12/06/2021 at 0:51
[2021-12-06] VITALS (12 sets, daily range): BP systolic 86–144; BP diastolic 51–65; PULSE 70–79; RESP 20–23; TEMP 36.6–37.2; O2SAT 91–96
[2021-12-06] MEDS: TRAMADOL 50 MG TABLET PO (00:01)
--- NOTE | 2021-12-06 00:43 | PC.NURSE ---
Addendum entered by Mary Balbuena R.N. 12/06/21 06:44: Patient has been able to doze after CT, SpO2 staying above 92%. Am glucose 66, gave patient 2% milk and kari crackers, rechecked to be 92. Original Note: At 2340, patient c/o sharp pain under left ribs rubbing anterior LUQ, rating 5-6/10. Tylenol given at HS for generalized pain from coughing. He was placed on 2L for ease of breathing and to keep sats >90%. Oxycodone offered but he declined, don't want something so strong Informed Hospitalist who ordered CTA and Tramadol-given prior to going to CT via WC, tolerated well.
[2021-12-06 05:06] LABS: BUN Creatinine Ratio 29.7 (6-22); Blood Urea Nitrogen 30 mg/dL (9-20); Calcium 8.9 mg/dL (8.4-10.2); Carbon Dioxide 29 mmol/L (22-32); Chloride 100 mmol/L (98-107); Estimated Glomerular Filt Rate > 60 mL/min (>60); Glucose 66 mg/dL (80-110); HEMOLYSIS < 15 (0-50); Hematocrit 30.6 % (41-53); Hemoglobin 10.4 g/dL (13.5-17.5); Mean Corpuscular HGB Conc 34.1 % (30-36); Mean Corpuscular Hemoglobin 30.8 PG (26-34); Mean Corpuscular Volume 90.4 fL (80-100); Platelet Count 199 X10^3/uL (150-400); Potassium 3.9 mmol/L (3.4-5.1); Red Blood Cell Count 3.39 X10^6/uL (4.5-5.9); Sodium 137 mmol/L (137-145); White Blood Cell Count 13.7 X10^3/uL (4.5-11.0)
[2021-12-06] MEDS: ACETAMINOPHEN 325 MG TABLET 650 MG PO (06:24)
[2021-12-06] MEDS: INSULIN REGULAR 100 UNIT/ML 3 ML VIAL SUBCUT ×2 (08:14→12:26)
[2021-12-06] MEDS: ENOXAPARIN 40 MG/0.4 ML SYRINGE SUBCUT (08:17)
[2021-12-06] MEDS: INSULIN GLARGINE 100 UNIT/ML 3ML PEN 30 UNIT SUBCUT (08:17)
[2021-12-06] MEDS: DEXAMETHASONE 10 MG/ML VIAL 6 MG IV (08:18)
[2021-12-06] MEDS: FUROSEMIDE 20 MG TABLET PO (08:20)
[2021-12-06] MEDS: GABAPENTIN 300 MG CAPSULE 900 MG PO ×2 (08:20→20:27)
[2021-12-06] MEDS: PANTOPRAZOLE DR 20 MG TABLET PO ×2 (08:20→20:28)
[2021-12-06] MEDS: DULOXETINE 30 MG CAPSULE 60 MG PO (08:21)
--- NOTE | 2021-12-06 09:33 | DIET.CONS ---
Dietary Consultation Note Admission Date: 12/04/2021 22:21 Assessment: 76 y/o M admitted with Covid 19 and treated for sepsis secondary to covid pneumonia with PMH IDDM and peripheral neuopathy. RD consulted for severe loss of appetite. Chava reports reduced appetite over the last six weeks with unknown etiology. Diet recall indicates <60% REE for intake. Unclear when weight loss of 15-20# occurred. Though with EMR wt history, seems this was 6.8% loss >2 months ago (not significant). Weight loss could be r/t reduced PO and hyperglycemia. Chava reports skipping morning glargine when BG is 120 mg/dL or less. Recent HgA1c of 8.5% 09/2021. Reports continued difficulty with PO today (reported 50% PO), though did have 100% PO at meals yesterday. Diet Recall: 11a: eggs, fruit, bagel with butter and coffee with splenda 9p: Mary Kay Larsen is at risk for moderate malnutrition, though currently does not seem to qualify. Ht: 177.8 cm Wt: 92.986 kg BMI: 29.4 UBW: 98-102kg Last BM: 12/05/21 (12/05/21 17:55) MNA: 8 Kenny Score: 19 Diet: 12/04/21 Breakfast Carbohydrate Consistent Diet Diet Modifications: Carbohydrate level: Large (4 CHO) Nutrition Percent Meal Consumed 100% 12/05/21 18:54 Percent Meal Consumed 100% 12/05/21 14:00 Labs: RBC 3.39 X10^6/uL (4.5-5.9) L 12/06/21 04:10 Hgb 10.4 g/dL (13.5-17.5) L 12/06/21 04:10 Hct 30.6 % (41-53) L 12/06/21 04:10 Creatinine 1.01 mg/dL (0.66-1.25) 12/06/21 04:10 Lactate 1.9 mmol/L (0.7-2.1) 12/04/21 20:45 NT-Pro-B Natriuret Pep 850 pg/mL (<450) H 12/04/21 20:45 Nutrition Diagnosis: Inadequate energy intake r/t reduced appetite aeb 15-20# reported weight loss and diet recall of <60% REE Interventions: High PRO ONS EER: 1700kcals Monitoring/Evaluations: PO, weight, and ONS tolerance Rec DSME in OP via virtual platform. Will reach out to PCP for referral. Electronically Signed by: Yun Jaquez 12/06/21 09:33 Clinical Dietitian [address] [address]
--- NOTE | 2021-12-06 10:40 | PC.NURSE ---
Addendum entered by Rain Valera R.N. 12/06/21 14:45: Conversation with patient's caregiver Jd finished with caregiver stating he would not take patient home until hospice nurse could be there to help and provide care for the patient, he wanted pt to stay here on comfort care until he could set everything up. REJI Enriquez attempted to explain to Jd the role of hospice and the current needs of the patient (pt is independent in the room and currently on room air). Jd stated he is aware and will not take the patient home until thursday or possibly thu. This information was passed on to the hospitalist and charge nurse. Patient to remain here at this time, will continue to care under comfort care guidelines. Pt sitting up in chair, no further needs at this time. Addendum entered by Rain Valera R.N. 12/06/21 13:18: I agree with all of Tammy's assessments and interventions- Rain Valera RN Original Note: Day shift note: Patient up to chair for breakfast SBA. Room air with saturation 92-96%. Patient expressed feeling depressed, stating, I feel like this is a terminal hospital stay. When this student nurse asked for clarification how why he felt this way, the patient stated, Just with how crappy my breathing is and my pain, I don't feel like I'm long for this world. I don't think I'm going to make it out of the hospital this time. Provider notified. Currently provider at bedside. Call light within reach. Place of comfort in chair. Will continue to monitor.
--- NOTE | 2021-12-06 10:59 | PM.PN.1 ---
Subjective Subjective Interval history: Patient brought in by caregiver initially to the emergency room, complaining of 1 day of cough cold congestion fever.? Feeling short of breath.? Has history of COPD but not requiring home oxygen.? [place] feverish or presentation.? No nausea or vomiting.? No known sick contacts.? Denies any chest pain.? No diarrhea.? Patient feels general malaise and weakness.? Patient is awake alert oriented x4.? Answering appropriately.? Protecting airway. Subsequently has had a positive COVID test. Also last evening had a CT angiogram of the chest to assess for pulmonary embolism. There was no pulmonary embolism however there was a noted lung mass concerning for malignancy. As well there was 3 enhancing lesions. Patient states today he is feeling comfortable breathing off oxygen however is fatigued. Has a sense that his prognosis is not good. Had a CT of the chest completed in January of 2021 which showed no lung lesions. On discussion with him about the CT angiogram results from last evening, he indicates that he felt there would be something like lung cancer. His father of lung cancer and he himself has had a 60 year smoking history. His wishes are for comfort care/hospice care. Wants consult to palliative care. Exam Vital Signs (past 8 hours): - 12/06/21 04:00 12/06/21 06:00 12/06/21 07:36 Temperature 98.9 F Pulse Rate 70 Respiratory Rate 23 Blood Pressure 144/65 H Pulse Oximetry 96 96 95 Oxygen Delivery Method Nasal Cannula Nasal Cannula Oxygen Flow Rate 2 2 2 12/06/21 08:22 12/06/21 04:00 12/06/21 04:09 Temperature Pulse Rate 79 71 74 Respiratory Rate Blood Pressure 91/52 L Pulse Oximetry 91 94 Oxygen Delivery Method Oxygen Flow Rate 12/06/21 04:09 12/06/21 06:00 12/06/21 07:40 Temperature Pulse Rate 75 79 Respiratory Rate Blood Pressure 144/65 H Pulse Oximetry 96 92 Oxygen Delivery Method Oxygen Flow Rate 12/06/21 07:40 12/06/21 08:00 12/06/21 08:00 Temperature 98.0 F Pulse Rate 79 Respiratory Rate 22 Blood Pressure 91/52 L Pulse Oximetry 92 Oxygen Delivery Method Oxygen Flow Rate 12/06/21 07:00 12/06/21 10:00 Temperature Pulse Rate Respiratory Rate Blood Pressure Pulse Oximetry 92 Oxygen Delivery Method Room Air Room Air Oxygen Flow Rate 0 Oxygen Delivery Method Room Air Oxygen Flow Rate 0 Narrative Exam Narrative: General: Appears in no acute distress Lungs: coughing through exam, general increased work of air breathing and poor air entry throughout the lung alarcon. Coarse breath sounds throughout the lung alarcon. CV: regular rate and rhythm Objective Labs Result Diagrams: 12/06/21 04:10 12/06/21 04:10 Labs: Laboratory Results - last 24 hr 12/06/21 12/06/21 04:10 04:10 WBC 13.7 H RBC 3.39 L Hgb 10.4 L Hct 30.6 L MCV 90.4 MCH 30.8 MCHC 34.1 RDW 18.0 H Plt Count 199 Sodium 137 Potassium 3.9 Chloride 100 Carbon Dioxide 29 BUN 30 H Creatinine 1.01 Estimated GFR > 60 BUN/Creatinine Ratio 29.7 H Glucose 66 L D Calcium 8.9 PFSH Medical History Diabetes History of cholelithiasis Hypertension Neuropathy PUD (peptic ulcer disease) Right femoral vein DVT Surgical History S/P cholecystectomy S/P rotator cuff repair Social History household members: children Smoking Status: Current every day smoker alcohol intake: never Assessment & Plan Assessment & Plan narrative: 1. Pneumonia due to 2019 novel coronavirus. Receiving remdesivir and dexamethasone. 1. concern for Sepsis secondary COVID pneumonia with acute hypoxemic respiratory failure And on antibiotics and has not had any blood cultures. On his change of code status will not proceed with any workup. 2. Acute COPD exacerbation secondary to above COVID pneumonia -continue IV remdesivir and IV steroids -Encouraged deep breathing, incentive spirometry, ambulation as tolerated.? -steroids and DuoNebs, close monitoring 3. Insulin-dependent type 2 diabetes mellitus -diabetic diet, sliding-scale insulin required due to steroids 4. Peripheral neuropathy, diabetic -continue gabapentin 5. Patient has expressed wishes to be comfort care only. We will consult palliative Care. Code status: Patient wishes to be comfort care only and signed papers in regards to this. Surrogate decision maker: Assembly Detailer named Jd Jade for DVT prophylaxis ppi for GI prophylaxis Time Spent With Patient Critical Care time: I spent a total of [] minutes of critical care time on this patient's care today; this time is exclusive of procedural time.
--- NOTE | 2021-12-06 11:08 | CM.DPC ---
Addendum entered by Zoe Aguilar R.N. 12/06/21 14:50: DCP talked with Jd MINDI, and it was discussed that Jd does not want to take the patient home until he is off the COVID restrictions. DCP explained to him that he is comfort measures and that he is medically stable to go home as he is independent and not imminent. Jd states that if he cannot go home on Thursday he will have to stay until Thursday until the equipment can be delivered. Jd also states that he has a phone call with Trina this afternoon to discuss further hospice information. Jd states, He will be discharged on Thursday and Thursday at the latest. DCP spoke with Trina @ [facility] and discussed the current situation. Trina to talk with dJ this afternoon. Trina confirms that the earliest they can see the pt is Saturday 12/09. DCP to continue to follow case. ADJ Addendum entered by Zoe Aguilar R.N. 12/06/21 12:00: Spoke with RN and pt is going to be discharged today. Jd will be here around 1300 to pick pt up. Pt does not need any hospice equipment set up prior to his discharge. DCP contacted [facility] to inform them of information. Trina states that they could see the pt on starting Saturday 12/09. RN was made aware of this information to relay to pt. Brochure given with Hospice contact information to RN and will provide to Jd. No other needs at this time. Zoe Aguilar RN/DEWAYNE Original Note: DCP Cont: Spoke with pts RN this morning and it was verbalized to DCP that pt is going onto comfort care. RN expresses that pt wants to go back home and hospice to be started. Pt on the phone currently with son, Jd. Jd to come up to hospital today. D[facility] to discuss referral. Referral is being faxed to them. Hospice unsure when they can see pt as this pt lives on [address]. Trina @ [facility] to contact DCP regarding when they can open with pt. DCP to continue to follow. Zoe Aguilar RN/DEWAYNE
[2021-12-06] MEDS: MORPHINE 10 MG/0.5 ML ORAL SYRINGE PO ×2 (11:29→12:31)
--- NOTE | 2021-12-06 11:55 | PM.DS.1 ---
History of Present Illness History of Present Illness Date Patient Seen: 12/06/21 Chief complaint: COVID +, Advanced COPD, SOB Discharge Providers Provider Date of admission: 12/04/21 22:21 Discharge Date: 12/06/21 Primary care physician: Columba Amaya PA-C Consults: 12/04/21 23:36 Consult to Dietitian, Adult Routine Comment: Reason For Exam: severe loss of appetite 12/05/21 09:46 Consult to Respiratory Therapy Evaluate & Treat Comment: Physician Instructions: Evaluate and treat 12/06/21 10:58 Consult to Discharge Planning Routine Comment: Consult to Hospice Referral Urgent Comment: Consult to Palliative Care Urgent Comment: Consulting Provider: Opal Mcmullen Discharge provider: Nathalia Reilly MD Summary Hospital Course Discharge Diagnosis: Most responsible diagnosis for length of stay: Mass lung concerning for malignancy Pre admit diagnosis: Cough Congestion Fever Shortness of breath COVID Lung mass concerning for malignancy leukocytosis Elevated BNP mildly Uncontrolled diabetes Smoker Pleural effusion COVID pneumonia Post admit diagnoses: None Secondary diagnosis: History of cholelithiasis Hypertension Neuropathy PUD (peptic ulcer disease) Right femoral vein DVT history S/P cholecystectomy S/P rotator cuff repair Hospital Course: Patient brought in by caregiver, complaints 1 day of cough cold congestion fever.? Feeling short of breath.? History of COPD but not requiring home oxygen.? [place] feverish.? No nausea or vomiting.? No known sick contacts.? Denied any chest pain.? No diarrhea.? Patient feels general malaise and weakness.? Patient is awake alert oriented x4.? Answering appropriately.? Protecting airway. Working diagnosis was COPD exacerbation. However COVID test was positive and patient's chest x-ray was concerning for COVID pneumonia and noted pleural effusion. Patient was placed on remdesivir treatment and dexamethasone intravenous treatment. The 2nd day of admission the patient had abrupt increase in shortness breath and a CT angiogram was completed to assess for pulmonary embolism. There was no pulmonary embolism, however, there was a noted lung mass of a lobulated soft tissue density mass in right hilar region is seen extending to right paratracheal space measuresup to 7.4 x 6.7 x 7.5 cm. As well, there was also 3 pleural based soft tissue density masses seen involving right apex measuring up to 2.9 x 3 x 1.6 cm in size and a 1.4 x 0.9 cm enhancing nodule involving right upper lobe posterior pleura. Additional mediastinal and hilar lymphadenopathies also seen measures up to 1.4 cm in size in subcarinal space. These findings were not a surprise to the patient since he felt something had been happening an ongoing for a couple of months. Based on these findings which were discussed with the patient, he wished to be comfort care only and have a palliative care consult. On further thinking about this the patient elected to be discharged to home and have hospice start at home in a few days. Some palliative pain medicine will be prescribed. Status at Discharge Cognitive/behavioral status at discharge: at baseline, oriented Functional status at discharge: independent ambulation Overall status at discharge: patient is not back to baseline Time Spent with Patient Time spent: Greater than 30 minutes Exam Vital Signs (past 8 hours): - 12/06/21 04:00 12/06/21 06:00 12/06/21 07:36 Temperature 98.9 F Pulse Rate 70 Respiratory Rate 23 Blood Pressure 144/65 H Pulse Oximetry 96 96 95 Oxygen Delivery Method Nasal Cannula Nasal Cannula Oxygen Flow Rate 2 2 2 12/06/21 08:22 12/06/21 04:00 12/06/21 04:09 Temperature Pulse Rate 79 71 74 Respiratory Rate Blood Pressure 91/52 L Pulse Oximetry 91 94 Oxygen Delivery Method Oxygen Flow Rate 12/06/21 04:09 12/06/21 06:00 12/06/21 07:40 Temperature Pulse Rate 75 79 Respiratory Rate Blood Pressure 144/65 H Pulse Oximetry 96 92 Oxygen Delivery Method Oxygen Flow Rate 12/06/21 07:40 12/06/21 08:00 12/06/21 08:00 Temperature 98.0 F Pulse Rate 79 Respiratory Rate 22 Blood Pressure 91/52 L Pulse Oximetry 92 Oxygen Delivery Method Oxygen Flow Rate 12/06/21 07:00 12/06/21 10:00 Temperature Pulse Rate Respiratory Rate Blood Pressure Pulse Oximetry 92 Oxygen Delivery Method Room Air Room Air Oxygen Flow Rate 0 Oxygen Delivery Method Room Air Oxygen Flow Rate 0 Narrative Exam Narrative: General:? Appears in no acute distress Lungs: coughing through exam, general increased work of air breathing and poor air entry throughout the lung alarcon.? Coarse breath sounds throughout the lung alarcon. CV: regular rate and rhythm Objective Labs Result Diagrams: 12/06/21 04:10 12/06/21 04:10 Labs: Laboratory Results - last 24 hr 12/06/21 12/06/21 04:10 04:10 WBC 13.7 H RBC 3.39 L Hgb 10.4 L Hct 30.6 L MCV 90.4 MCH 30.8 MCHC 34.1 RDW 18.0 H Plt Count 199 Sodium 137 Potassium 3.9 Chloride 100 Carbon Dioxide 29 BUN 30 H Creatinine 1.01 Estimated GFR > 60 BUN/Creatinine Ratio 29.7 H Glucose 66 L D Calcium 8.9 PFSH Medical History Diabetes History of cholelithiasis Hypertension Neuropathy PUD (peptic ulcer disease) Right femoral vein DVT Surgical History S/P cholecystectomy S/P rotator cuff repair Social History household members: children Smoking Status: Current every day smoker alcohol intake: never Discharge Plan Discharge Plan Patient Disposition: Home Provider Discharge Comment: Hospice care will initiate at home. Discharge orders & Medications Prescriptions: New morphine concentrate 10 mg/0.5 mL Syringe 10 mg PO Q1H PRN (Reason: Pain/Dyspnea) Qty: 10 0RF Continued gabapentin 300 mg capsule 600 mg PO BID Rx Instructions: TAKE 3 CAPSULES (900 MG) BY MOUTH 2 TIMES DAILY. duloxetine 30 mg capsule,delayed release(DR/EC) 60 mg PO QAM Rx Instructions: TAKE TWO CAPSULE IN THE MORNING AND ONE CAPSULE IN THE EVENING. pantoprazole 20 mg Tablet,Delayed Release (Dr/Ec) 20 mg PO BID duloxetine 30 mg Capsule,Delayed Release(Dr/Ec) 30 mg PO QPM budesonide-formoterol [Symbicort] 160-4.5 mcg/actuation Hfa Aerosol Inhaler 2 puff INHALATION BID cholecalciferol (vitamin D3) 125 mcg (5,000 unit) tablet 125 mcg PO DAILY atorvastatin 40 mg tablet 40 mg PO QPM Qty: 90 3RF furosemide 20 mg tablet 20 mg PO DAILY Qty: 90 3RF insulin glargine 100 unit/mL (3 mL) insulin pen 30 unit SUBCUT BID Qty: 15 3RF Rx Instructions: INJECT 30 UNITS UNDER THE SKIN EVERY MORNING. metoprolol tartrate 25 mg tablet 25 mg PO BID Qty: 180 3RF tiotropium bromide 18 mcg capsule, w/inhalation device 1 cap inhalation BEDTIME Qty: 90 3RF Rx Instructions: puncture 1 cap using device; one dose = 2 inhalations losartan 25 mg tablet 12.5 mg PO BID Qty: 90 3RF empagliflozin 25 mg tablet 12.5 mg PO DAILY Qty: 45 3RF alogliptin 12.5 mg tablet 12.5 mg PO DAILY Qty: 90 3RF Follow up/Referrals: Columba Amaya PAMarioC [Primary Care Provider] - Discharge Data Primary Care Provider: Columba Amaya
[2021-12-06] MEDS: ONDANSETRON 4 MG ODT PO ×2 (13:54→20:27)
[2021-12-06] MEDS: LORazepam 1 MG TABLET PO ×2 (15:31→20:27)
[2021-12-06] MEDS: SCOPOLAMINE 1 PATCH TOP (20:26)
[2021-12-06] MEDS: DULOXETINE 30 MG CAPSULE PO (20:27)
[2021-12-07 08:10] VITALS: BP 116/61; PULSE 101; RESP 18; O2SAT 92
[2021-12-07] MEDS: INSULIN REGULAR 100 UNIT/ML 3 ML VIAL SUBCUT ×4 (08:26→20:28)
[2021-12-07] MEDS: INSULIN GLARGINE 100 UNIT/ML 3ML PEN 30 UNIT SUBCUT ×2 (08:33→20:27)
[2021-12-07 09:02] VITALS: BP 116/50; PULSE 101
[2021-12-07] MEDS: LOSARTAN 25 MG TABLET 12.5 MG PO ×2 (09:02→20:30)
[2021-12-07] MEDS: PANTOPRAZOLE DR 20 MG TABLET PO ×2 (09:02→20:30)
[2021-12-07] MEDS: GABAPENTIN 300 MG CAPSULE 900 MG PO ×2 (09:03→20:30)
[2021-12-07] MEDS: FUROSEMIDE 20 MG TABLET PO (09:03)
[2021-12-07] MEDS: METOPROLOL IR 25 MG TABLET PO ×2 (09:04→20:30)
[2021-12-07] MEDS: DULOXETINE 30 MG CAPSULE 60 MG PO (09:04)
[2021-12-07 10:00] VITALS: RESP 17; TEMP 36.7; O2SAT 93
--- NOTE | 2021-12-07 13:03 | CM.DPC ---
Addendum entered by Noemí Mccullough R.N. 12/07/21 15:41: Dr. Magallon has seen patient, but has not yet discharged. He will call the Jd OBREGON, and give him an update. By tomorrow, if stable, will have patient discharge, and this DC Skein Yarn Drier will update POA with the number for [facility], and will need to send all records. Original Note: DCP Cont: [facility] and spoke to Neetu, for notes indicated that they would be out to the home on Thursday to open for hospice. Confirmed that they will not be able to be in the home until Thursday, possibly, and patient is wanting to go home. Asked Dr. Magallon to call Jd OBREGON, to update him on the medical situation, as patient is ambulatory in his room, one assist. Notes reflect Jd's concerns to take him home with fear of his mortality as well as COVID precautions.. Encouraged hospitalist that after conversation, if he refuses to have patient go home, will discuss the appeal process. Will need hospitalist to discharge patient first, and work on appeal. This DC Skein Yarn Drier will need to explain to Jd as far as the appeal process. Notes indicate that he has been explained to about the possibility of cost for patient to remain here. P: DCP to see how conversation goes with MINDI, and will follow up with the appeal process if needed. Noemí Mccullough RN/Fish Bait Picker
--- NOTE | 2021-12-07 16:41 | P.PN_ITS ---
Subjective Subjective Date Patient Seen: 12/07/21 Interval history: Patient denies complaints today. Exam Vital Signs (past 8 hours): - 12/07/21 09:02 12/07/21 10:00 Temperature 98.1 F Pulse Rate 101 H Blood Pressure 116/50 L Pulse Oximetry 93 Oxygen Flow Rate 0 Oxygen Delivery Method Room Air Oxygen Flow Rate 0 Narrative Exam Narrative: General:? Appears in no acute distress, sitting upright in bedside chair eating a meal. Lungs: Coarse breath sounds throughout the lung alarcon, slight tachypnea but no acute distress CV: regular rate and rhythm Ext: No edema. Objective Labs Result Diagrams: 12/06/21 04:10 12/06/21 04:10 [facility] Medical History Diabetes History of cholelithiasis Hypertension Neuropathy PUD (peptic ulcer disease) Right femoral vein DVT Surgical History S/P cholecystectomy S/P rotator cuff repair Social History household members: children Smoking Status: Current every day smoker alcohol intake: never Assessment & Plan Assessment & Plan narrative: 1. Pneumonia due to 2019 novel coronavirus. Received remdesivir and dexamethasone, which were stopped. 1. concern for Sepsis secondary COVID pneumonia with acute hypoxemic respiratory failure And on antibiotics and has not had any blood cultures. On his change of code status will not proceed with any workup. -now appears improved. 2. Acute COPD exacerbation secondary to above COVID pneumonia -continued IV remdesivir and IV steroids initially but stopped. He is no longer on supplemental oxygen. -Encouraged deep breathing, incentive spirometry, ambulation as tolerated.? 3. Insulin-dependent type 2 diabetes mellitus 4. Peripheral neuropathy, diabetic -continue gabapentin 5. Patient has expressed wishes to be comfort care only in the setting of respiratory failure and advanced presumed lung cancer noted on imaging. Pending hospice at home, but he remains ambulatory. 6. Depression - continue home duloxetine. Code status: Patient wishes to be comfort care only and signed papers in regards to this. Surrogate decision maker: Bead Machine Operator named Jd Jade for DVT prophylaxis ppi for GI prophylaxis Dispo: planned for discharge home on hospice, hospice unable to open until Mond ay, but possible discharge home tomorrow pending lawn caretaker as patient has no equipment needs. He can resume his home medications at the time of discharge. Time Spent With Patient Critical Care time: I spent a total of [] minutes of critical care time on this patient's care today; this time is exclusive of procedural time.
[2021-12-07] MEDS: ATORVASTATIN 20 MG TABLET 40 MG PO (16:45)
[2021-12-07 20:00] VITALS: BP 136/62; PULSE 79; RESP 16; TEMP 36.7; O2SAT 98
[2021-12-07 20:30] VITALS: BP 136/62
[2021-12-07] MEDS: DULOXETINE 30 MG CAPSULE PO (20:31)
[2021-12-08] MEDS: INSULIN REGULAR 100 UNIT/ML 3 ML VIAL SUBCUT ×4 (07:52→20:42)
[2021-12-08] MEDS: PANTOPRAZOLE DR 20 MG TABLET PO ×2 (07:59→20:23)
[2021-12-08 08:00] VITALS: BP 118/58; PULSE 69
[2021-12-08] MEDS: LOSARTAN 25 MG TABLET 12.5 MG PO ×2 (08:00→20:23)
[2021-12-08] MEDS: METOPROLOL IR 25 MG TABLET PO ×2 (08:03→20:23)
[2021-12-08] MEDS: DULOXETINE 30 MG CAPSULE 60 MG PO (08:03)
[2021-12-08] MEDS: FUROSEMIDE 20 MG TABLET PO (08:03)
[2021-12-08] MEDS: GABAPENTIN 300 MG CAPSULE 900 MG PO ×2 (08:03→20:23)
[2021-12-08] MEDS: INSULIN GLARGINE 100 UNIT/ML 3ML PEN 30 UNIT SUBCUT ×2 (08:04→20:43)
[2021-12-08 08:09] VITALS: BP 118/58; PULSE 66; RESP 17; TEMP 36.6; O2SAT 93
--- NOTE | 2021-12-08 08:38 | CM.DPC ---
Addendum entered by Noemí Mccullough R.N. 12/08/21 14:22: Dr. Magallon was able to get in contact with POA, Jd, and is accepting of discharge home if oxygen can be delivered here, and patient take with him home. [facility] , and spoke with nurse, Angie, since Neetu is at lunch, and asked her to update Neetu that oxygen will need to be delivered here. Will follow up with a time tomorrow. Addendum entered by Noemí Mccullough R.N. 12/08/21 11:50: Discussed patient during team rounds. Let hospitalist know about patient's concerns about not having oxygen right away and going home. Dr. Magallon plans on speaking to patient today, and DPOA, for plan on discharging home tomorrow if oxygen can be delivered here and taken with patient. If patient/DPOA, refused to be discharged tomorrow, he will DC today, and DC Nut Tightener will initiate the appeal process. He will update this DC Nut Tightener today. Original Note: DCP cont: Called patient in his room to get more information. Confirmed with patient that Jd is no relation to patient, but is his POA for medical and financial. Asked patient the reason that his POA is hesitant, about having him return home. Patient indicated, he is worried that when I go home, I will need oxygen, and won't be available, and will have to be flown back here. Hospitalist has attempted to reach out to [facility], but has not been answering his phone. [facility] , and spoke to Neetu. Conf[facility] Asked her if there is a possibility of having the oxygen delivered here, and [facility]. Stated, that can be done. Do not have a confirmed day as to when hospice can open patient. Will discuss further at team rounds if hospitalist feels that patient is medically ready to discharge patient. Patient may appeal his discharge, or POA, but patient is decisional. P: DCP to work on case, may be avoidable day if patient is stable for discharge today, and will push for discharge so appeal can be done. Noemí Mccullough RN/Poultry Killer
--- NOTE | 2021-12-08 14:01 | PM.PN.1 ---
Subjective Subjective Date Patient Seen: 12/08/21 Interval history: Patient denies complaints today. Discussed with DPOA, would like oxygen at home for comfort while on hospice. While patient does not need oxygen at this time, given his malignancy there is an expectatation that he may need O2 for comfort in the near future. Plan is for hospice to deliver oxygen here tomorrow, then discharge home with hospice at that time. Exam Vital Signs (past 8 hours): - 12/08/21 07:00 12/08/21 08:00 12/08/21 08:09 Temperature 98 F Pulse Rate 69 66 Respiratory Rate 17 Blood Pressure 118/58 L 118/58 L Pulse Oximetry 93 Oxygen Delivery Method Room Air Oxygen Flow Rate 0 Oxygen Delivery Method Room Air Oxygen Flow Rate 0 Narrative Exam Narrative: General:? Appears in no acute distress, sitting upright in bedside chair eating a meal. Lungs: Coarse breath sounds throughout the lung alarcon, slight tachypnea but no acute distress CV: regular rate and rhythm Ext: No edema. Objective Labs Result Diagrams: 12/06/21 04:10 12/06/21 04:10 [facility] Medical History Diabetes History of cholelithiasis Hypertension Neuropathy PUD (peptic ulcer disease) Right femoral vein DVT Surgical History S/P cholecystectomy S/P rotator cuff repair Social History household members: children Smoking Status: Current every day smoker alcohol intake: never Assessment & Plan Assessment & Plan narrative: 1. Pneumonia due to 2019 novel coronavirus. Received remdesivir and dexamethasone, which were stopped due to comfort measures but he is no longer on supplemental therapy. 1. concern for Sepsis secondary COVID pneumonia with acute hypoxemic respiratory failure -now appears improved. 2. Acute COPD exacerbation secondary to above COVID pneumonia -continued IV remdesivir and IV steroids initially but stopped. He is no longer on supplemental oxygen. -Encouraged deep breathing, incentive spirometry, ambulation as tolerated.? 3. Insulin-dependent type 2 diabetes mellitus - comfort only, only oral medications. 4. Peripheral neuropathy, diabetic -continue gabapentin 5. Patient has expressed wishes to be comfort care only in the setting of respiratory failure and advanced presumed lung cancer noted on imaging. Pending hospice at home, but he remains ambulatory. - DPOA would like home O2 for comfort, which can be delivered by hospice tomorrow. He does not currently require oxygen so this is for comfort only at this time. 6. Depression - continue home duloxetine. Code status: Patient wishes to be comfort care only and signed papers in regards to this. Surrogate decision maker: Bulk Station Agent named Jd Dispo: planned for discharge home on hospice tomorrow with home O2 for comfort. Time Spent With Patient Critical Care time: I spent a total of [] minutes of critical care time on this patient's care today; this time is exclusive of procedural time.
[2021-12-08] MEDS: ATORVASTATIN 20 MG TABLET 40 MG PO (16:48)
[2021-12-08 20:00] VITALS: BP 138/62; PULSE 77; RESP 19; TEMP 36.4; O2SAT 93
[2021-12-08] MEDS: DULOXETINE 30 MG CAPSULE PO (20:22)
[2021-12-08 20:23] VITALS: BP 138/62; PULSE 87
--- NOTE | 2021-12-09 06:20 | PC.NURSE ---
Life Agent Note: Patient slept long periods during the night. Patient denying pain. Occasional harsh cough with coarse rhonchi thoughout. Patient allowed to sleep without awakening during noc per MD orders.
--- NOTE | 2021-12-09 07:46 | CM.DPC ---
Addendum entered by Noemí Mccullough R.N. 12/09/21 09:36: [facility] will be seen in his home tomorrow at 10:00. He has already spoken to Jd. She asked [facility] to deliver here first, [place] [address]. Will need DC Summary faxed upon discharge. Addendum entered by Noemí Mccullough R.N. 12/09/21 09:29: Attempted to call [facility] for a time of oxygen delivery, but no answer, kept ringing with no voice mail options. Will attempt again later this am. Addendum entered by Noemí Mccullough R.N. 12/09/21 08:16: Spoke to Jd, patient's DPOA. He is [place] [address] [place], stated, he was mostly concerned about patient's COVID situation, and having oxygen, but not as concerned now. He mentioned that if he does not need oxygen, can wait until Wed, but would be nice to have it. Will still follow up with [facility]. P: DCP to continue to follow. Patient should be discharging back home today, will see when oxygen will be delivered. Noemí Mccullough RN/Candle Molder Machine Original Note: DCP Cont: Left patient's DPOA, Jd, a message to call this DC Square Shear Operator, since he is subject to ferry times. Let him know that this DC Square Shear Operator will follow up today with [facility], to find out a time of delivery so he can coordinate ferry times. P: DCP to continue to follow. Plan is home today, pending oxygen delivery here at the hospital from [facility]. Noemí Mccullough RN/Candle Molder Machine
[2021-12-09] MEDS: INSULIN REGULAR 100 UNIT/ML 3 ML VIAL SUBCUT ×2 (07:57→11:50)
[2021-12-09] MEDS: INSULIN GLARGINE 100 UNIT/ML 3ML PEN 30 UNIT SUBCUT (07:58)
[2021-12-09 08:00] VITALS: BP 119/58; PULSE 61; RESP 20; TEMP 36.1; O2SAT 95
[2021-12-09] MEDS: DULOXETINE 30 MG CAPSULE 60 MG PO (08:11)
[2021-12-09] MEDS: GABAPENTIN 300 MG CAPSULE 900 MG PO (08:11)
[2021-12-09] MEDS: METOPROLOL IR 25 MG TABLET PO (08:11)
[2021-12-09 08:12] VITALS: BP 118/58; PULSE 68
[2021-12-09] MEDS: FUROSEMIDE 20 MG TABLET PO (08:12)
[2021-12-09] MEDS: PANTOPRAZOLE DR 20 MG TABLET PO (08:12)
[2021-12-09] MEDS: LOSARTAN 25 MG TABLET 12.5 MG PO (08:12)
--- NOTE | 2021-12-09 09:38 | P.DS_ITS ---
History of Present Illness History of Present Illness Chief complaint: COVID +, Advanced COPD, SOB Narrative: Patient brought in by caregiver, complaints 1 day of cough cold congestion fever.? Feeling short of breath.? Has history of COPD but not requiring home oxygen.? Feels feverish.? No nausea or vomiting.? No known sick contacts.? Denies any chest pain.? No diarrhea.? Patient feels general malaise and weak ness.? Patient is awake alert oriented x4.? Answering appropriately.? Protecting airway. When I saw the patient in the ER he was sleepy but arousable and able to make a reasonable conversation.? He says that he started feeling better, cough is improving, breathing status is also improving.? He denies any chest pain.? He is not really sure about any COVID contacts at this time.? His son lives in [facility] and daughter lives in [facility] but his primary personal lines underwriter is his friend Jd and also the caregiver.? When I saw the patient Jd was not at bedside, patient requested not to call him at this time unless it is an emergency. Discharge Providers Provider Date of admission: 12/04/21 22:21 Discharge Date: 12/09/21 Primary care physician: Columba Amaya PA-C Consults: 12/04/21 23:36 Consult to Dietitian, Adult Routine Comment: Reason For Exam: severe loss of appetite 12/05/21 09:46 Consult to Respiratory Therapy Evaluate & Treat Comment: Physician Instructions: Evaluate and treat 12/06/21 10:58 Consult to Discharge Planning Routine Comment: Consult to Hospice Referral Urgent Comment: Consult to Palliative Care Urgent Comment: Consulting Provider: Opal Mcmullen Discharge provider: Lee Naqvi DO Summary Hospital Course Discharge Diagnosis: 1.? COVID pneumonia with incidental finding of large hilar mass and metastatic lung lesions.? Patient electing for hospice after hearing results of scan. Does not want further workup or treatment. Received remdesivir and dexamethasone, which were stopped due to comfort measures but he is no longer on supplemental therapy. 1. concern for Sepsis secondary COVID pneumonia with acute hypoxemic respiratory failure -now appears improved. 2. Acute COPD exacerbation secondary to above COVID pneumonia -continued IV remdesivir and IV steroids initially but stopped. He is no longer on supplemental oxygen. -Encouraged deep breathing, incentive spirometry, ambulation as tolerated.? 3. Insulin-dependent type 2 diabetes mellitus ?- comfort only, only oral medications. 4. Peripheral neuropathy, diabetic -continue gabapentin 5. Patient has expressed wishes to be comfort care only in the setting of respiratory failure and advanced presumed lung cancer noted on imaging.? Pending hospice at home, but he remains ambulatory. ?- DPOA would like home O2 for comfort, which can be delivered by hospice tomorrow. He does not currently require oxygen so this is for comfort only at this time. 6. Depression ?- continue home duloxetine. 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 Discharged with home O2 for comfort for hospice to open on 12/10. Sent script for po morphine for pain until hospice can open. Time Spent with Patient Time spent: Greater than 30 minutes Exam Vital Signs (past 8 hours): - 12/09/21 08:12 12/09/21 07:00 12/09/21 08:00 Temperature 97.0 F L Pulse Rate 68 61 Respiratory Rate 20 Blood Pressure 118/58 L 119/58 L Pulse Oximetry 95 Oxygen Delivery Method Room Air Oxygen Flow Rate 0 Oxygen Delivery Method Room Air Oxygen Flow Rate 0 Narrative Exam Narrative: General:? Appears in no acute distress, sitting upright in bedside chair eating a meal. Lungs: Coarse breath sounds throughout the lung alarcon, slight tachypnea but no acute distress CV: regular rate and rhythm Ext: No edema. Objective Labs Result Diagrams: 12/06/21 04:10 12/06/21 04:10 [facility] Medical History Diabetes History of cholelithiasis Hypertension Neuropathy PUD (peptic ulcer disease) Right femoral vein DVT Surgical History S/P cholecystectomy S/P rotator cuff repair Social History household members: children Smoking Status: Current every day smoker alcohol intake: never Discharge Plan Discharge Plan Patient Disposition: Home Provider Discharge Comment: Hospice care will initiate at home. Discharge orders & Medications Prescriptions: New morphine concentrate 10 mg/0.5 mL Syringe 10 mg PO Q1H PRN (Reason: Pain/Dyspnea) Qty: 10 0RF Continued gabapentin 300 mg capsule 600 mg PO BID Rx Instructions: TAKE 3 CAPSULES (900 MG) BY MOUTH 2 TIMES DAILY. duloxetine 30 mg capsule,delayed release(DR/EC) 60 mg PO QAM Rx Instructions: TAKE TWO CAPSULE IN THE MORNING AND ONE CAPSULE IN THE EVENING. pantoprazole 20 mg Tablet,Delayed Release (Dr/Ec) 20 mg PO BID duloxetine 30 mg Capsule,Delayed Release(Dr/Ec) 30 mg PO QPM budesonide-formoterol [Symbicort] 160-4.5 mcg/actuation Hfa Aerosol Inhaler 2 puff INHALATION BID cholecalciferol (vitamin D3) 125 mcg (5,000 unit) tablet 125 mcg PO DAILY atorvastatin 40 mg tablet 40 mg PO QPM Qty: 90 3RF furosemide 20 mg tablet 20 mg PO DAILY Qty: 90 3RF insulin glargine 100 unit/mL (3 mL) insulin pen 30 unit SUBCUT BID Qty: 15 3RF Rx Instructions: INJECT 30 UNITS UNDER THE SKIN EVERY MORNING. metoprolol tartrate 25 mg tablet 25 mg PO BID Qty: 180 3RF tiotropium bromide 18 mcg capsule, w/inhalation device 1 cap inhalation BEDTIME Qty: 90 3RF Rx Instructions: puncture 1 cap using device; one dose = 2 inhalations losartan 25 mg tablet 12.5 mg PO BID Qty: 90 3RF empagliflozin 25 mg tablet 12.5 mg PO DAILY Qty: 45 3RF alogliptin 12.5 mg tablet 12.5 mg PO DAILY Qty: 90 3RF Follow up/Referrals: Columba Amaya PAMarioC [Primary Care Provider] - Diet/Activity/Treatments Diet: Diet as Tolerated Activity: as tolerated Visit Report/Discharge Packet Instructions: DI for Heart Failure, DI for Prescription Opioid Use Discharge Data Primary Care Provider: Columba Amaya
== END 2021-12-09 13:58 | disposition home or self-care (01) | DRG 871 ==
LOC: ED 22:08 → ICU 12-05 09:08 → AC 12-09 09:59 → ICU 12-09 09:59
PROVIDERS: Internal Medicine; Admitting Provider Family Medicine; Emergency Provider Emergency Medicine; PCP Physician Assistant Medical; Referring Provider Emergency Medicine; Visit Provider Family Medicine
DX: A41.89 Other specified sepsis (principal); J12.82 Pneumonia due to coronavirus disease 2019; U07.1 COVID-19; J96.01 Acute respiratory failure with hypoxia; J44.1 Chronic obstructive pulmonary disease with (acute) exacerbation; C34.90 Malignant neoplasm of unspecified part of unspecified bronchus or lung; R65.20 Severe sepsis without septic shock; E11.42 Type 2 diabetes mellitus with diabetic polyneuropathy; F32.A Depression, unspecified; I10 Essential (primary) hypertension; K27.9 Peptic ulcer, site unspecified, unspecified as acute or chronic, without hemorrhage or perforation; F17.200 Nicotine dependence, unspecified, uncomplicated; Z51.5 Encounter for palliative care; Z79.4 Long term (current) use of insulin
CPT/HCPCS: 36415; 36600; 71046; 71275; 80048; 80053; 82550; 82805; 82962; 83605; 83880; 84145; 84484; 85025; 85027; 85610; 85730; 87633; 93005; 93010; 94640; 94762; 96374; 99284; J1100; J1650; Q9967